=== PATIENT | female | born 1945 | race African-American/Black ===

== ENCOUNTER 2017-08-07 11:17 | Emergency (ER) | payer BC ==
[2017-08-07 11:39] VITALS: BMI 20.7
--- NOTE | 2017-08-07 12:35 | PDOC ---
History of Present Illness - General History Source: Patient - History of Present Illness Pain Location: reports: lower extremity Method of Injury: Yes: fall <TatoNafisa - Last Filed: 08/07/17 13:14> <Supriya Jeffers - Last Filed: 08/07/17 17:13> - General Chief Complaint: Injury Stated Complaint: FELL/PAIN Time Seen by Provider: 08/07/17 12:26 Past History - Past Medical History Cardiac Disorders: Yes (MITRAL VALVE PROLAPSE) COPD: No HTN: Yes Hypercholesterolemia: Yes - Surgical History Cholecystectomy: Yes - Immunization History Td Vaccination: No Immunization Up to Date: Yes - Suicide/Smoking/Psychosocial Hx Smoking Status: No Smoking History: Never smoked Have you smoked in the past 12 months: No Number of Cigarettes Smoked Daily: 0 Cigars Per Day: 0 Information on smoking cessation initiated: No Hx Alcohol Use: No Drug/Substance Use Hx: No Substance Use Type: None Hx Substance Use Treatment: No <Kosta GodwinAvis - Last Filed: 08/07/17 13:14> <Supriya Jeffers - Last Filed: 08/07/17 17:13> - Past Medical History Allergies/Adverse Reactions: Allergies Allergy/AdvReac Type Severity Reaction Status Date / Time amitriptyline HCl Allergy Verified 08/07/17 11:28 [From Elavil] imipramine HCl Allergy Verified 08/07/17 11:28 [From Tofranil] Home Medications: Ambulatory Orders Amlodipine Besylate [Norvasc -] 10 mg PO DAILY 10/17/14 Meloxicam [Mobic -] 15 mg PO DAILY PRN 10/17/14 Leflunomide 20 mg PO DAILY 12/14/15 Atorvastatin Ca [Lipitor] 0 mg PO HS 08/07/17 Review of Systems - Review of Systems Constitutional: No: Fever Respiratory: No: Shortness of Breath Cardiac (ROS): Yes: Lightheadedness. No: Chest Pain, Palpitations, Syncope ABD/GI: No: Nausea, Vomiting : No: Dysuria Musculoskeletal: Yes: Joint Pain, Joint Swelling. No: Back Pain, Neck Pain <Nafisa Godwin - Last Filed: 08/07/17 13:14> *Physical Exam - Vital Signs Last Vital Signs Temp Pulse Resp BP Pulse Ox 98.0 F 92 H 17 128/80 97 01/31/18 11:29 08/07/17 11:29 08/07/17 11:29 08/07/17 11:29 08/07/17 11:29 - Physical Exam General Appearance: Yes: Appropriately Dressed. No: Apparent Distress HEENT: positive: Normal Voice Neck: positive: Supple Respiratory/Chest: positive: Lungs Clear, Normal Breath Sounds. negative: Chest Tender, Respiratory Distress Cardiovascular: positive: Regular Rate, S1, S2 Extremity: positive: Tender, Swelling, Other (no deformity or LLE b/l) Integumentary: positive: Dry, Warm Neurologic: positive: Fully Oriented, Alert, Normal Mood/Affect <Nafisa Godwin - Last Filed: 08/07/17 13:14> - Vital Signs Last Vital Signs Temp Pulse Resp BP Pulse Ox 98.0 F 79 18 107/61 99 08/07/17 11:29 08/07/17 16:14 08/07/17 16:14 08/07/17 16:14 08/07/17 16:14 <Supriya Jeffers - Last Filed: 08/07/17 17:13> Heart Score/ECG Review - ECG Intrepretation Comment:: 08/07/17 12:38 Twelve-lead EKG was performed and reviewed by me. There is normal sinus rhythm with a normal rate. The axis is normal. The intervals are normal. There are no ST or T wave abnormalities. Impression: Normal twelve-lead EKG <Nafisa Godwin - Last Filed: 08/07/17 13:14> ED Treatment Course - LABORATORY CBC & Chemistry Diagram: 08/07/17 12:50 08/07/17 12:50 - RADIOLOGY Radiology Studies Ordered: Category Date Time Status CHEST PA & LAT [RAD] Stat Radiology 08/07/17 12:31 Ordered KNEE 3 POS-RIGHT [RAD] Stat Radiology 08/07/17 12:31 Ordered RIBS BILATERAL [RAD] Stat Radiology 08/07/17 12:32 Ordered <Nafisa Godwin - Last Filed: 08/07/17 13:14> - LABORATORY CBC & Chemistry Diagram: 08/07/17 12:50 08/07/17 12:50 - ADDITIONAL ORDERS Additional order review: Laboratory Results 08/07/17 08/07/17 13:48 12:50 Sodium 143 Potassium 4.0 Chloride 107 Carbon Dioxide 29 Anion Gap 7 L BUN 14 Creatinine 0.7 Creat Clearance w eGFR > 60 Random Glucose 82 Calcium 9.0 Total Bilirubin 1.1 H D AST 24 ALT 28 Alkaline Phosphatase 114 Creatine Kinase 99 Troponin I < 0.02 Total Protein 6.7 Albumin 3.6 Urine Color Yellow Urine Appearance Clear Urine pH 5.0 D Ur Specific [place] 1.021 Urine Protein Negative Urine Glucose (UA) Negative Urine Ketones Negative Urine Blood Negative Urine Nitrite Negative Urine Bilirubin Negative Urine Urobilinogen 2.0 H Ur Leukocyte Esterase Negative 08/07/17 12:50 RBC 4.44 MCV 82.1 MCHC 31.4 L RDW 14.5 MPV 10.2 Neutrophils % 44.8 Lymphocytes % 33.2 Monocytes % 16.4 H Eosinophils % 5.1 H Basophils % 0.5 - RADIOLOGY Radiology Studies Ordered: Category Date Time Status HIP & PELVIS-LEFT [RAD] Stat Radiology 08/07/17 15:10 Completed HIP & PELVIS-RIGHT [RAD] Stat Radiology 08/07/17 15:10 Completed - Medications Given in the ED: ED Medications Discontinued Medications Generic Name Dose Route Start Last Admin Trade Name Freq PRN Reason Stop Dose Admin Ketorolac Tromethamine 30 mg 08/07/17 12:38 08/07/17 12:50 Toradol Injection - IVPUSH 08/07/17 12:39 30 mg ONCE ONE Administration <Supriya Jeffers - Last Filed: 08/07/17 17:13> Medical Decision Making - Medical Decision Making 08/07/17 12:32 71-year-old female, history of arthritis, borderline diabetes, not on medication , hypertension, mitral valve prolapse, not on any blood thinners, here with right knee pain after injury. Patient states 3 days ago while outdoors, she fell and injured left right knee and left chest. Unsure why she fell per pt. Has had intermittent lightheadedness on and off 2 weeks, but states she was not dizzy prior to fall and did not have chest pain. Patient denies hitting head and no LOC, headache, nausea, vomiting, or focal weakness. Admits that she has had similar dizziness intermittently for years with no clear diagnosis. Patient denies any neck, back or hip pain and has been able to bear weight since fall See exam Knee pain s/p fall, unclear mechanism but denies dizziness/cp prior to fall -xr knee and ribs Chronic intermittent dizziness Not dizzy currently No CP/SOB No focal neuro deficits -ekg/cxr/labs 08/07/17 13:14 As per computer aided design technician, patient refusing hip films as she reports she has no hip pain <Nafisa Godwin - Last Filed: 08/07/17 13:14> *DC/Admit/Observation/Transfer <Nafisa Godwin - Last Filed: 08/07/17 13:14> - Discharge Dispostion Admit: No <Supriya Jeffers - Last Filed: 08/07/17 17:13> Diagnosis at time of Disposition: Fall - Discharge Dispostion Disposition: HOME Condition at time of disposition: Good - Referrals Referrals: Stephy Real MD [Primary Care Provider] - - Patient Instructions Additional Instructions: Please return to the ED for any new/worsening/concerning symptoms. - Post Discharge Activity
[2017-08-07] MEDS ORDERED: KETOROLAC TROMETHAMINE 30 MG/1 ML VIAL IVPUSH ONE (12:38)
[2017-08-07] MEDS ORDERED: KETOROLAC TROMETHAMINE 30 MG/1 ML VIAL ONE (12:42)
--- NOTE | 2017-08-07 12:48 | PDOC ---
*Physical Exam - Vital Signs Last Vital Signs Temp Pulse Resp BP Pulse Ox 98.0 F 92 H 17 128/80 97 08/07/17 11:29 08/07/17 11:29 08/07/17 11:29 08/07/17 11:29 08/07/17 11:29 - Physical Exam Comments: 08/07/17 12:47 The patient was examined by ISADORA Godwin under my direct supervision. I personally evaluated the patient. I concur with the above findings and the plan of care. *DC/Admit/Observation/Transfer - Referrals Referrals: Stephy Real MD [Primary Care Provider] - - Patient Instructions - Post Discharge Activity
[2017-08-07 13:00] LABS: BASO % 0.5 % (0-2.0); EOS % 5.1 % (0-4.5); HEMATOCRIT 36.5 % (32.4-45.2); HEMOGLOBIN 11.5 GM/dL (10.7-15.3); LYMPH % 33.2 % (8-40); MCH 25.8 pg (25.7-33.7); MCHC 31.4 g/dl (32.0-36.0); MEAN CELL VOLUME 82.1 fl (80-96); MEAN PLT VOLUME 10.2 fl (7.5-11.1); MONO % 16.4 % (3.8-10.2); NEUT % 44.8 % (42.8-82.8); PLATELET COUNT 145 K/MM3 (134-434); RBC 4.44 M/mm3 (3.60-5.2); RDW 14.5 % (11.6-15.6); WHITE BLOOD COUNT 3.7 K/mm3 (4.0-10.0)
[2017-08-07 13:27] LABS: ALBUMIN 3.6 g/dl (3.4-5.0); ANION GAP 7 (8-16); BLOOD UREA NITROGEN 14 mg/dL (7-18); CHLORIDE 107 mmol/L (98-107); CO2 29 mmol/L (21-32); CREATININE 0.7 mg/dL (0.55-1.02); GLUCOSE,RANDOM 82 mg/dL (74-106); SGOT/AST 24 U/L (15-37); SGPT/ALT 28 U/L (12-78); SODIUM 143 mmol/L (136-145); TOT PROT 6.7 g/dl (6.4-8.2)
[2017-08-07 13:30] LABS: ALK PHOS 114 U/L (45-117); BILIRUBIN,TOTAL 1.1 mg/dL (0.2-1.0)
[2017-08-07 14:00] LABS: URINE APPEARANCE CLEAR; URINE BILIRUBIN NEGATIVE (NEGATIVE); URINE BLOOD NEGATIVE (NEGATIVE); URINE COLOR YELLOW; URINE GLUCOSE (UA) NEGATIVE (NEGATIVE); URINE KETONE NEGATIVE (NEGATIVE); URINE LEUK ESTERASE NEGATIVE (NEGATIVE); URINE NITRITE NEGATIVE (NEGATIVE); URINE PROTEIN NEGATIVE (NEGATIVE)
--- NOTE | 2017-08-07 14:49 | EKG ---
Test Reason : Blood Pressure : / mmHG Vent. Rate : 069 BPM Atrial Rate : 069 BPM P-R Int : 132 ms QRS Dur : 080 ms QT Int : 408 ms P-R-T Axes : 014 051 056 degrees QTc Int : 437 ms POOR DATA QUALITY, INTERPRETATION MAY BE ADVERSELY AFFECTED NORMAL SINUS RHYTHM MINIMAL VOLTAGE CRITERIA FOR LVH, MAY BE NORMAL VARIANT ANTERIOR INFARCT , AGE UNDETERMINED ABNORMAL ECG WHEN COMPARED WITH ECG OF 21-MAY-2016 15:07, ANTERIOR INFARCT IS NOW PRESENT Confirmed by LASHELL LARA, VERONICA ([id number]) on 08/07/2017 2:49:24 PM Referred By: Confirmed By:VERONICA LOBO MD
[2017-08-07 17:11] VITALS: BP 118/71; PULSE 71; TEMP 98.1
--- NOTE | 2017-08-08 11:02 | EKG ---
Test Reason : Blood Pressure : / mmHG Vent. Rate : 075 BPM Atrial Rate : 075 BPM P-R Int : 152 ms QRS Dur : 078 ms QT Int : 392 ms P-R-T Axes : 051 059 057 degrees QTc Int : 437 ms NORMAL SINUS RHYTHM POSSIBLE ANTERIOR INFARCT (CITED ON OR BEFORE 07-AUG-2017) ABNORMAL ECG WHEN COMPARED WITH ECG OF 07-AUG-2017 12:14, T WAVE INVERSION NO LONGER EVIDENT IN ANTERIOR LEADS NONSPECIFIC T WAVE ABNORMALITY NOW EVIDENT IN LATERAL LEADS Confirmed by RAIMUNDO SRINIVASAN MD ([id number]) on 08/08/2017 11:01:56 AM Referred By: Confirmed By:RAIMUNDO SRINIVASAN MD
== END 2017-08-07 17:14 | disposition home or self-care (01) ==
LOC: JER 11:17
PROC: 3E0333Z Introduction of Anti-inflammatory into Peripheral Vein, Percutaneous Approach (ICD-10-PCS; principal; 2017-08-07)
DX: M25.561 Pain in right knee (principal); W18.39XA Other fall on same level, initial encounter; Y93.89 Activity, other specified; Y92.9 Unspecified place or not applicable; I10 Essential (primary) hypertension; I34.1 Nonrheumatic mitral (valve) prolapse; R73.03 Prediabetes
CPT/HCPCS: 36415; 71046-TC; 71111-TC; 73523-TC; 73562-TC-RT; 80053; 81003; 82550; 84484; 85025; 93005; 93010; 96374; 99284-25

== ENCOUNTER 2017-08-28 15:14 | Emergency (ER) | payer BC ==
[2017-08-28 15:48] VITALS: TEMP 98.5; BMI 20.7
[2017-08-28] MEDS ORDERED: SODIUM CHLORIDE 1,000 ML IV STA (18:36)
--- NOTE | 2017-08-28 19:02 | PDOC ---
History of Present Illness - General Chief Complaint: Lightheaded Stated Complaint: DIZZY Time Seen by Provider: 08/28/17 18:21 - History of Present Illness Initial Comments: 08/28/17 19:50 The patient is a 71 year old female, with a significant past medical history of COPD, HTN, mitral valve prolapse, hypercholesterolemia who presents to the emergency department with lightheadedness for 5 days. Pt reports she tried to take a walk today and felt like she was going to pass out which prompted her to come to the ED. Denies LOC or falls. Sister endorses the patient has had less energy these past couple of days with complaints of nausea and a decreased appetite. Sister notes she has been only able to tolerate crackers and Daja Katheryn for most meals and reports the patient did not eat anything today. She denies recent fevers, chills, headache. She denies recent vimiting, diarrhea or constipation. She denies recent dysuria, frequency, urgency or hematuria. She denies recent chest pain or shortness of breath. Denies focal weakness or numbness Allergies: NKA Past surgical history: None reported. Social history: Nonsmoker. Denies EtOH use and recreational drug use. Past History - Past Medical History Allergies/Adverse Reactions: Allergies Allergy/AdvReac Type Severity Reaction Status Date / Time amitriptyline HCl Allergy Verified 08/28/17 15:29 [From Elavil] imipramine HCl Allergy Verified 08/28/17 15:29 [From Tofranil] Home Medications: Ambulatory Orders Amlodipine Besylate [Norvasc -] 10 mg PO DAILY 10/17/14 Meloxicam [Mobic -] 15 mg PO DAILY PRN 10/17/14 Leflunomide 20 mg PO DAILY 12/14/15 Atorvastatin Ca [Lipitor] 0 mg PO HS 08/07/17 Colchicine [Colcrys -] 0.6 mg PO DAILY 08/28/17 Cardiac Disorders: Yes (MITRAL VALVE PROLAPSE) COPD: No HTN: Yes Hypercholesterolemia: Yes - Surgical History Cholecystectomy: Yes - Immunization History Td Vaccination: No Immunization Up to Date: No - Suicide/Smoking/Psychosocial Hx Smoking Status: No Smoking History: Never smoked Have you smoked in the past 12 months: No Number of Cigarettes Smoked Daily: 0 Cigars Per Day: 0 Information on smoking cessation initiated: No Hx Alcohol Use: No Drug/Substance Use Hx: No Substance Use Type: None Hx Substance Use Treatment: No Review of Systems - Review of Systems Comments:: 08/28/17 19:50 GENERAL/CONSTITUTIONAL: No fever or chills. No weakness. HEAD, EYES, EARS, NOSE AND THROAT: No change in vision. No ear pain or discharge. No sore throat. GASTROINTESTINAL: No nausea, vomiting, diarrhea or constipation. GENITOURINARY: No dysuria, frequency, or change in urination. CARDIOVASCULAR: No chest pain or shortness of breath. RESPIRATORY: No cough, wheezing, or hemoptysis. MUSCULOSKELETAL: No joint or muscle swelling or pain. No neck or back pain. SKIN: No rash NEUROLOGIC: +lightheaded. No headache, vertigo, loss of consciousness, or change in strength/sensation. ENDOCRINE: No increased thirst. No abnormal weight change. HEMATOLOGIC/LYMPHATIC: No anemia, easy bleeding, or history of blood clots. ALLERGIC/IMMUNOLOGIC: No hives or skin allergy. *Physical Exam - Vital Signs Last Vital Signs Temp Pulse Resp BP Pulse Ox 98.5 F 71 20 140/90 99 08/28/17 15:29 08/28/17 15:29 08/28/17 15:29 08/28/17 15:29 08/28/17 15:29 - Physical Exam Comments: 08/28/17 19:51 GENERAL: Awake, alert, and fully oriented, in no acute distress HEAD: No signs of trauma EYES: PERRLA, EOMI, sclera anicteric, conjunctiva clear ENT: Auricles normal inspection, hearing grossly normal, nares patent, oropharynx clear without exudates. Dry mucosa NECK: Normal ROM, supple, no lymphadenopathy, JVD, or masses LUNGS: Breath sounds equal, clear to auscultation bilaterally. No wheezes, and no crackles HEART: Regular rate and rhythm, normal S1 and S2, no murmurs, rubs or gallops ABDOMEN: Soft, nontender, normoactive bowel sounds. No guarding, no rebound. No masses EXTREMITIES: Normal range of motion, no edema. No clubbing or cyanosis. No cords , erythema, or tenderness BACK: No midline spinal tenderness in cervical/thoracic/lumbar region NEUROLOGICAL: Normal speech, cranial nerves intact, negative pronator drift, 5/ 5 strength in all 4 extremities, normal sensation to light touch in all 4 extremities, normal cerebellar exam, normal gait, normal reflexes and tone SKIN: Warm, Dry, normal turgor, no rashes or lesions noted. ED Treatment Course - LABORATORY CBC & Chemistry Diagram: 08/28/17 19:25 08/28/17 19:25 - RADIOLOGY Radiology Studies Ordered: Category Date Time Status CHEST X-RAY PORTABLE* [RAD] Stat Radiology 08/28/17 18:36 Taken Medical Decision Making - Medical Decision Making 08/28/17 19:51 71-year-old female hx COPD, HTN, mitral valve prolapse, hypercholesterolemia presents to the emergency department with 5 days of lightheadedness and presyncope today. Vitals unremarkable. Exam with dry mucous membranes, otherwise unremarkable and neurologically intact.. Differential includes but not limited to dehydration due to poor PO intake versus infection versus electrolyte abnormality versus cardiac ischemia. Plan: -EKG -labs -cxr -ivf -UA -reassess Patient has been signed out to overnight attending for further evaluation and management. *DC/Admit/Observation/Transfer Diagnosis at time of Disposition: Lightheadedness, Near syncope - Discharge Dispostion Disposition: HOME Condition at time of disposition: Stable - Referrals Referrals: Alonzo Black MD [Staff Physician] - Jeff Hassan MD [Staff Physician] - - Patient Instructions Printed Discharge Instructions: DI for Syncope in Adults (Fainting) Additional Instructions: Please follow up with your primary care or the doctor referred to you in the next two days for re-evaluation. Return if any problems - Post Discharge Activity
[2017-08-28 19:35] LABS: BASO % 1.1 % (0-2.0); EOS % 6.6 % (0-4.5); HEMATOCRIT 35.1 % (32.4-45.2); HEMOGLOBIN 10.9 GM/dL (10.7-15.3); MCH 25.7 pg (25.7-33.7); MCHC 31.1 g/dl (32.0-36.0); MEAN CELL VOLUME 82.7 fl (80-96); MONO % 4.9 % (3.8-10.2); NEUT % 39.4 % (42.8-82.8); PLATELET COUNT 185 K/MM3 (134-434); RBC 4.25 M/mm3 (3.60-5.2); RDW 14.8 % (11.6-15.6); WHITE BLOOD COUNT 2.7 K/mm3 (4.0-10.0)
[2017-08-28 19:51] LABS: URINE APPEARANCE CLEAR; URINE BILIRUBIN NEGATIVE (NEGATIVE); URINE BLOOD NEGATIVE (NEGATIVE); URINE COLOR LTYELLOW; URINE GLUCOSE (UA) NEGATIVE (NEGATIVE); URINE KETONE NEGATIVE (NEGATIVE); URINE LEUK ESTERASE NEGATIVE (NEGATIVE); URINE NITRITE NEGATIVE (NEGATIVE); URINE PROTEIN NEGATIVE (NEGATIVE); URINE UROBILINOGEN 4.0 E.U/dl mg/dL (0.2-1.0)
[2017-08-28 19:55] LABS: ALBUMIN 3.5 g/dl (3.4-5.0); ANION GAP 7 (8-16); BILIRUBIN,TOTAL 1.3 mg/dL (0.2-1.0); BLOOD UREA NITROGEN 11 mg/dL (7-18); CALCIUM 8.5 mg/dL (8.5-10.1); CHLORIDE 109 mmol/L (98-107); CO2 26 mmol/L (21-32); CREATININE 0.7 mg/dL (0.55-1.02); GLUCOSE,RANDOM 114 mg/dL (74-106); POTASSIUM 3.5 mmol/L (3.5-5.1); SGOT/AST 33 U/L (15-37); SGPT/ALT 39 U/L (12-78); SODIUM 142 mmol/L (136-145); TOT PROT 6.3 g/dl (6.4-8.2)
[2017-08-28 19:57] LABS: ALK PHOS 101 U/L (45-117)
--- NOTE | 2017-08-28 21:20 | PDOC ---
*Physical Exam - Vital Signs Last Vital Signs Temp Pulse Resp BP Pulse Ox 98.5 F 71 20 140/90 99 08/28/17 15:29 08/28/17 15:29 08/28/17 15:29 08/28/17 15:29 08/28/17 15:29 ED Treatment Course - LABORATORY CBC & Chemistry Diagram: 08/28/17 19:25 08/28/17 19:25 - ADDITIONAL ORDERS Additional order review: Laboratory Results 08/28/17 08/28/17 08/28/17 19:47 19:25 19:25 Sodium 142 Potassium 3.5 Chloride 109 H Carbon Dioxide 26 Anion Gap 7 L BUN 11 Creatinine 0.7 Creat Clearance w eGFR > 60 Random Glucose 114 H Calcium 8.5 Magnesium 2.0 Total Bilirubin 1.3 H AST 33 ALT 39 Alkaline Phosphatase 101 Troponin I < 0.02 B-Natriuretic Peptide 45.10 Total Protein 6.3 L Albumin 3.5 Urine Color Ltyellow Urine Appearance Clear Urine pH 8.0 D Ur Specific [place] 1.009 Urine Protein Negative Urine Glucose (UA) Negative Urine Ketones Negative Urine Blood Negative Urine Nitrite Negative Urine Bilirubin Negative Urine Urobilinogen 4.0 e.u/dl H Ur Leukocyte Esterase Negative 08/28/17 19:25 RBC 4.25 MCV 82.7 MCHC 31.1 L RDW 14.8 MPV 10.0 Neutrophils % 39.4 L Lymphocytes % 48.0 H D Monocytes % 4.9 Eosinophils % 6.6 H Basophils % 1.1 - Medications Given in the ED: ED Medications Discontinued Medications Generic Name Dose Route Start Last Admin Trade Name Freq PRN Reason Stop Dose Admin Sodium Chloride 1,000 mls @ 1,000 mls/hr 08/28/17 18:36 08/28/17 19:30 Normal Saline - IV 08/28/17 19:35 1,000 mls/hr ASDIR STA Administration *DC/Admit/Observation/Transfer Diagnosis at time of Disposition: Lightheadedness, Near syncope - Discharge Dispostion Disposition: HOME Condition at time of disposition: Stable Admit: No - Referrals Referrals: Alonzo Black MD [Staff Physician] - Jeff Hassan MD [Staff Physician] - - Patient Instructions Printed Discharge Instructions: DI for Syncope in Adults (Fainting) Additional Instructions: Please follow up with your primary care or the doctor referred to you in the next two days for re-evaluation. Return if any problems - Post Discharge Activity
[2017-08-28 21:37] VITALS: BP 124/86; PULSE 68
--- NOTE | 2017-08-29 16:07 | EKG ---
Test Reason : Blood Pressure : / mmHG Vent. Rate : 072 BPM Atrial Rate : 072 BPM P-R Int : 142 ms QRS Dur : 064 ms QT Int : 414 ms P-R-T Axes : 066 057 052 degrees QTc Int : 453 ms POOR DATA QUALITY, INTERPRETATION MAY BE ADVERSELY AFFECTED NORMAL SINUS RHYTHM SEPTAL INFARCT (CITED ON OR BEFORE 07-AUG-2017) ABNORMAL ECG WHEN COMPARED WITH ECG OF 07-AUG-2017 14:44, QUESTIONABLE CHANGE IN INITIAL FORCES OF SEPTAL LEADS Confirmed by RAIMUNDO SRINIVASAN MD ([id number]) on 08/29/2017 4:07:48 PM Referred By: Confirmed By:RAIMUNDO SRINIVASAN MD
== END 2017-08-28 21:37 | disposition home or self-care (01) ==
LOC: JER 15:14
PROC: 3E0337Z Introduction of Electrolytic and Water Balance Substance into Peripheral Vein, Percutaneous Approach (ICD-10-PCS; principal; 2017-08-28)
DX: R55 Syncope and collapse (principal); I10 Essential (primary) hypertension; J44.9 Chronic obstructive pulmonary disease, unspecified; E78.00 Pure hypercholesterolemia, unspecified; I34.1 Nonrheumatic mitral (valve) prolapse
CPT/HCPCS: 36415; 71045-TC-FY; 80053; 81003; 83735; 83880; 84484; 85025; 87086; 93005; 93010; 99282-25

== ENCOUNTER 2017-11-07 08:39 | Emergency (ER) | payer BC ==
[2017-11-07 08:47] VITALS: BP 138/80; PULSE 73; TEMP 97.5; BMI 20.9
--- NOTE | 2017-11-07 09:03 | PDOC ---
History of Present Illness - General Chief Complaint: Injury Stated Complaint: HEADACHE/ HEAD INJURY Time Seen by Provider: 11/07/17 09:02 History Source: Patient Exam Limitations: No Limitations - History of Present Illness Initial Comments: 11/07/17 10:27 Patient 70-year-old female who presents emergency Department after turning and hitting her head and door frame this morning. Patient states she was getting out of the bathroom when she turned suddenly and hit the front of her forehead in the door frame. She states that she has a bruise to the front of her head. Denies LOC, falling, headache. Denies blood thinner use. States that she currently feels slightly lightheaded. Denies recent illness, fevers, chills, hematuria, dysuria, cough, nausea, vomiting and diarrhea. Past History - Travel Traveled outside of the country in the last 30 days: No Close contact w/someone who was outside of country & ill: No - Past Medical History Allergies/Adverse Reactions: Allergies Allergy/AdvReac Type Severity Reaction Status Date / Time amitriptyline HCl Allergy Verified 11/07/17 08:43 [From Elavil] imipramine HCl Allergy Verified 11/07/17 08:43 [From Tofranil] Home Medications: Ambulatory Orders Amlodipine Besylate [Norvasc -] 10 mg PO DAILY 10/17/14 Meloxicam [Mobic -] 15 mg PO DAILY PRN 10/17/14 Leflunomide 20 mg PO DAILY 12/14/15 Atorvastatin Ca [Lipitor] 0 mg PO HS 08/07/17 Colchicine [Colcrys -] 0.6 mg PO DAILY 08/28/17 Cardiac Disorders: Yes (MITRAL VALVE PROLAPSE) COPD: No HTN: Yes Hypercholesterolemia: Yes - Surgical History Abdominal Surgery: Yes (HERNIA) Cholecystectomy: Yes - Immunization History Td Vaccination: No Immunization Up to Date: No - Suicide/Smoking/Psychosocial Hx Smoking Status: No Smoking History: Never smoked Have you smoked in the past 12 months: No Number of Cigarettes Smoked Daily: 0 Cigars Per Day: 0 Information on smoking cessation initiated: No Hx Alcohol Use: No Drug/Substance Use Hx: No Substance Use Type: None Hx Substance Use Treatment: No Review of Systems - Review of Systems Able to Perform ROS?: Yes Comments:: 11/07/17 09:02 CONSTITUTIONAL: Absent: fever, chills, diaphoresis, generalized weakness, malaise, loss of appetite HEENT: Absent: rhinorrhea, nasal congestion, throat pain, throat swelling, difficulty swallowing, mouth swelling, ear pain, eye pain, visual Changes CARDIOVASCULAR: Absent: chest pain, loss of consciousness, palpitations, irregular heart rate, peripheral edema RESPIRATORY: Absent: cough, shortness of breath, dyspnea with exertion, orthopnea, wheezing, stridor, hemoptysis GASTROINTESTINAL: Absent: abdominal pain, abdominal distension, nausea, vomiting, diarrhea, constipation, melena, hematochezia GENITOURINARY: Absent: dysuria, frequency, urgency, hesitancy, hematuria, flank pain, genital pain MUSCULOSKELETAL: Absent: myalgia, arthralgia, joint swelling SKIN: Present: Hematoma to forehead Absent: rash, itching, pallor HEMATOLOGIC/IMMUNOLOGIC: Absent: easy bleeding, easy bruising, lymphadenopathy, frequent infections ENDOCRINE: Absent: unexplained weight gain, unexplained weight loss, heat intolerance, cold intolerance NEUROLOGIC: Absent: headache, focal weakness or paresthesias, dizziness, unsteady gait, seizure, mental status changes, bladder or bowel incontinence Is the patient limited Peruvian proficient: No *Physical Exam - Vital Signs Last Vital Signs Temp Pulse Resp BP Pulse Ox 97.5 F L 73 18 138/80 100 11/07/17 08:44 11/07/17 08:44 11/07/17 08:44 11/07/17 08:44 11/07/17 08:44 - Physical Exam Comments: 11/07/17 09:03 GENERAL: Well developed, well nourished. Awake and alert. No acute distress. HEENT: Normocephalic, atraumatic. PERRLA, EOMI. No conjunctival pallor. Sclera are non- icteric. Moist mucous membranes. Oropharynx is clear. NECK: Supple. Full ROM. No JVD. Carotid pulses 2+ and symmetric, without bruits. No thyromegaly. No lymphadenopathy. CARDIOVASCULAR: Regular rate and rhythm. No murmurs, rubs, or gallops. Distal pulses are 2+ and symmetric. PULMONARY: No evidence of respiratory distress. Lungs clear to auscultation bilaterally. No wheezing, rales or rhonchi. ABDOMINAL: Soft. Non-tender. Non-distended. No rebound or guarding. No organomegaly. Normoactive bowel sounds. MUSCULOSKELETAL Normal range of motion at all joints. No bony deformities or tenderness. No CVA tenderness. EXTREMITIES: No cyanosis. No clubbing. No edema. No calf tenderness. SKIN: Hematoma to the L forehead approximatel 3cm round. Warm and dry. Normal capillary refill. No rashes. No jaundice. NEUROLOGICAL: Alert, awake, appropriate. Cranial nerves 2-12 intact. No deficits to light touch and temperature in face, upper extremities and lower extremities. No motor deficits in the in face, upper extremities and lower extremities. Normoreflexic in the upper and lower extremities. Normal speech. Toes are down- going bilaterally. Gait is normal without ataxia. PSYCHIATRIC: Cooperative. Good eye contact. Appropriate mood and affect. Medical Decision Making - Medical Decision Making 11/07/17 09:29 Patient is a 71-year-old female fingers department after hitting her head on a door frame today. Patient is neurologically intact this time. Hematoma to the forehead with no lacerations, crepitus or step-offs felt. Negative [place] sign, no hemotympanum. Patient denies blood agrees. Patient given ice pack and Tylenol with relief of her symptoms. Given no LOC and no blood thinner use will defer head CT at this time. Strict return precautions given. Patient understands all discharge instructions and all questions were answered. *DC/Admit/Observation/Transfer Diagnosis at time of Disposition: Hematoma - Discharge Dispostion Disposition: HOME Condition at time of disposition: Stable Admit: No - Referrals Referrals: Bina Tapia MD [Primary Care Provider] - - Patient Instructions Printed Discharge Instructions: How to Prevent Falls Additional Instructions: You hit your head this morning and a doorframe. You have a bruise over your forehead or hematoma. Please apply ice to the area for 20 minute intervals for the next day. Please rest and drink plenty of fluids. Follow-up with her primary care doctor this week. Return to the emergency department if you have worsening headache, lightheadedness, dizziness, vomiting, or have any changes in your symptoms. - Post Discharge Activity Forms/Work/School Notes: Back to Work
== END 2017-11-07 09:58 | disposition home or self-care (01) ==
LOC: JERFT 08:39
DX: S00.83XA Contusion of other part of head, initial encounter (principal); W22.01XA Walked into wall, initial encounter; Y93.89 Activity, other specified; Y92.9 Unspecified place or not applicable; I10 Essential (primary) hypertension; E78.00 Pure hypercholesterolemia, unspecified; I34.1 Nonrheumatic mitral (valve) prolapse
CPT/HCPCS: 99281-25

== ENCOUNTER 2018-02-14 11:57 | Emergency (ER) | payer BC ==
[2018-02-14 12:37] VITALS: TEMP 97.8; BMI 23.5
--- NOTE | 2018-02-14 13:20 | PDOC ---
History of Present Illness - General Chief Complaint: Vomiting/Diarrhea Stated Complaint: ABD PAIN Time Seen by Provider: 02/14/18 13:18 History Source: Patient Exam Limitations: No Limitations - History of Present Illness Initial Comments: Pt, with PMH of COPD, HTN, MVP, HLD, and RA, presents with multiple episodes of nausea, NBNB vomiting, non-bloody loose brown stool, and crampy abdominal pain since 10 am this morning. The pt states she takes colchicine for her RA ( prescribed by Dr. Cardoso) and she took the pills the night before presentation; she takes 4-5 pills one day per week. She has had similar symptoms after taking colchicine in the past. She also ate grilled chicken and coleslaw the night before, which nobody else ate. She has not been able to tolerate PO food or fluid intake since the vomiting and diarrhea started this morning and has started to feel light-headed. The vomiting and diarrhea is preceded by crampy abdominal pain which is intermittent and lasts for a few minutes before the she can use the bathroom. She denies fevers or chills, syncope, vertigo, chest pain , rectal bleeding, leg swelling, or joint pain. She denies any recent travel or other sick contacts. She denies any undercooked food. 02/16/18 18:36 Past History - Travel Traveled outside of the country in the last 30 days: No Close contact w/someone who was outside of country & ill: No - Past Medical History Allergies/Adverse Reactions: Allergies Allergy/AdvReac Type Severity Reaction Status Date / Time amitriptyline HCl Allergy Verified 11/07/17 08:43 [From Elavil] imipramine HCl Allergy Verified 11/07/17 08:43 [From Tofranil] Home Medications: Ambulatory Orders Amlodipine Besylate [Norvasc -] 10 mg PO DAILY 10/17/14 Meloxicam [Mobic -] 15 mg PO DAILY PRN 10/17/14 Leflunomide 20 mg PO DAILY 12/14/15 Atorvastatin Ca [Lipitor] 0 mg PO HS 08/07/17 Colchicine [Colcrys -] 0.6 mg PO DAILY 08/28/17 Ondansetron HCl [Zofran] 4 mg PO DAILY PRN #20 tablet 02/14/18 Asthma: Yes Cardiac Disorders: Yes (MITRAL VALVE PROLAPSE) CVA: No COPD: Yes DVT: No Diabetes: No HTN: Yes Hypercholesterolemia: Yes - Surgical History Abdominal Surgery: Yes (HERNIA) Cholecystectomy: Yes - Immunization History Td Vaccination: No Immunization Up to Date: No - Suicide/Smoking/Psychosocial Hx Smoking Status: No Smoking History: Never smoked Have you smoked in the past 12 months: No Number of Cigarettes Smoked Daily: 0 Cigars Per Day: 0 Hx Alcohol Use: No Drug/Substance Use Hx: No Substance Use Type: None Hx Substance Use Treatment: No Review of Systems - Review of Systems Able to Perform ROS?: Yes Is the patient limited Peruvian proficient: No Constitutional: Yes: Weight Stable. No: Chills, Diaphoresis, Fever, Loss of Appetite, Night Sweats, Weakness HEENTM: No: Blurred Vision, Recent change in vision, Nose Congestion, Hearing Loss, Throat Swelling, Difficulty Swallowing Respiratory: No: Cough, Orthopnea, Shortness of Breath, Wheezing, Productive cough Cardiac (ROS): No: Chest Pain, Edema, Irregular Heart Rate, Lightheadedness, Palpitations, Syncope, Chest Tightness ABD/GI: Yes: Diarrhea, Nausea, Poor Appetite, Poor Fluid Intake (unable to tolerate since vomiting started this morning), Vomiting, Abdominal cramping ( generalized crampy pain). No: Abdominal Distended, Abd. Pain w/ defecation, Blood Streaked Bowels, Constipated, Difficulty Swallowing, Rectal Bleeding, Indigestion, Tarry Stools : No: Burning, Dysuria, Discharge, Frequency, Flank Pain, Hematuria, Incontinence, Pain, Urgency Musculoskeletal: No: Back Pain, Joint Pain, Muscle Pain, Muscle Weakness Integumentary: No: Erythema, Rash, Sweating Neurological: No: Headache, Numbness, Paresthesia, Seizure, Tingling, Weakness, Unsteady Gait, Ataxia, Dizziness Psychiatric: No: Sleep Pattern Change, Change in Appetite Endocrine: No: Increased Urine, Change in Weight Hematologic/Lymphatic: No: Anemia, Blood Clots, Easy Bleeding All Other Systems: Reviewed and Negative *Physical Exam - Vital Signs Last Vital Signs Temp Pulse Resp BP Pulse Ox 97.8 F 80 20 115/67 100 02/14/18 12:33 02/14/18 12:33 02/14/18 12:33 02/14/18 12:33 02/14/18 12:33 - Physical Exam General Appearance: Yes: Nourished, Appropriately Dressed, Thin. No: Apparent Distress HEENT: positive: EOMI, SHEA, Normal ENT Inspection, Normal Voice, Symmetrical, TMs Normal, Pharynx Normal, Hearing Grossly Normal. negative: Scleral Icterus ( R), Scleral Icterus (L), Tonsillar Exudate, Tonsillar Erythema, Nasal Congestion , Rhinorrhea, TM Bulging, TM Erythema, Excessive drooling, Thrush Neck: positive: Trachea midline, Normal Thyroid, Supple. negative: Tender, Rigid, Decreased range of motion, Lymphadenopathy (R), Lymphadenopathy (L), Rigidity Respiratory/Chest: positive: Lungs Clear, Normal Breath Sounds. negative: Chest Tender, Respiratory Distress, Accessory Muscle Use, Crackles, Stridor, Wheezing Cardiovascular: positive: Regular Rhythm, Regular Rate, S1, S2. negative: Edema , JVD, Murmur Vascular Pulses: Dorsalis-Pedis (R): 4+, Doralis-Pedis (L): 4+ Gastrointestinal/Abdominal: positive: Normal Bowel Sounds, Tender (epigastric tenderness, no rebound no guarding. abdominal exam produces nausea.), Flat. negative: Soft, Organomegaly, Pulsatile Mass, Guarding, Rebound, Tenderness Rectal Exam: positive: deferred Lymphatic: negative: Adenopathy, Tenderness Musculoskeletal: positive: Normal Inspection. negative: CVA Tenderness Extremity: positive: Normal Capillary Refill, Normal Inspection, Normal Range of Motion, Pelvis Stable. negative: Tender, Delayed Capillary Refill, Pedal Edema Integumentary: positive: Normal Color, Dry, Warm, Other (increased skin turgor in hands). negative: Jaundice, Mottled, Diaphoresis, Petechiae, Rash Neurologic: positive: solution developer II-XII NML intact, Fully Oriented, Alert, Normal Mood/ Affect, Normal Response, Motor Strength 5/5 Heart Score/ECG Review - History History: Slightly suspicious - Electrocardiogram EKG: Normal - Age Age: >/= 65 - ECG Impressions Normal ECG: Yes Non-specific ST Elevation: No Ischemic Changes: No Bradycardia: No Torsades arias Pointes: No WPW: No ED Treatment Course - LABORATORY CBC & Chemistry Diagram: 02/14/18 15:40 02/14/18 16:55 Medical Decision Making - Medical Decision Making Pt seen at bedside, will also be seen by Dr. Rhona. Pt is afebrile and does not look toxic. Has been having nausea, vomiting, and diarrhea since this morning after taking her colchicine last night. Pt has had similar symptoms in prior weeks after taking her colchicine. Pt states she is feeling better and would like to go home. Will start with 4 mg PO Zofran and PO fluids to see if pt can tolerate PO intake. Will reassess. 02/14/18 13:52 (entered later). Pt continued to have nausea, vomiting, and diarrhea in the department. Canceled PO zofran. Provided 4 mg IV zofran with 1 L NS. CBC and CMP showed changes consistent with dehydration and diarrhea/vomiting ( hyperchloremic, mildly hypernatremic). Pt provided crackers and water in the ER which she was able to tolerate. Will discharge to home with strict follow-up precautions. Pt will follow-up with PCP within 1-2 days. Pt agreeable to plan and will return if symptoms worsen. 02/14/18 18:41 Sent 4 mg PO zofran PRN to preferred pharmacy for nausea/vomiting as needed. 02/14/18 18:50 *DC/Admit/Observation/Transfer Diagnosis at time of Disposition: Gastroenteritis - Discharge Dispostion Disposition: HOME Condition at time of disposition: Improved Decision to Admit order: No - Prescriptions Prescriptions: Ondansetron HCl [Zofran] 4 mg PO DAILY PRN #20 tablet PRN Reason: Nausea And/Or Vomiting - Referrals Referrals: German Esteves MD [Primary Care Provider] - - Patient Instructions - Post Discharge Activity
--- NOTE | 2018-02-14 14:02 | PDOC ---
Attending Attestation - Resident Resident Name: Keyana Stone - ED Attending Attestation I have performed the following: I have examined & evaluated the patient, The case was reviewed & discussed with the resident, I agree w/resident's findings & plan, Exceptions are as noted - HPI HPI: 02/14/18 14:00 72y F hx of RA, htn, hl, gout on colchicine presents with n/v/d since this morning. Pt states she was well yesterday. Pt endorses some cramping abd pain prior to vomiting. She has had 3-4 episodes, nbnb, vomiting, and 2 or so episodes of watery stool without blood. Pt denies any fever/chills, back pain, cp, sob, sick contacts, recent travel or abx use. GENERAL: The patient is awake, alert, and fully oriented, Nontoxic - in no acute distress. HEAD: Normocephalic, atraumatic. EYES: extraocular movements intact, sclera anicteric, conjunctiva clear. ENT: Normal voice, dry mucous membranes. NECK: Normal range of motion, supple LUNGS: Breath sounds equal, clear to auscultation bilaterally. No wheezes, no rhonchi, no rales. HEART: Regular rate and rhythm, normal S1 and S2 without murmur, rub or gallop. ABDOMEN: Soft, nontender, hyperactive bowel sounds. No guarding, no rebound. No CVA tenderness EXTREMITIES: Normal range of motion, no edema. NEUROLOGICAL: No facial assymetry, Normal speech, PSYCH: Normal mood, normal affect. SKIN: Warm, Dry, normal turgor suspect AGE, no abd tenderness to suggest localized peritoneal process will ck labs to r/o metabolic dernagement zofran fro nausea/vomiting fliuds for hydration - Physicial Exam PE: 02/16/18 16:29 see abve - Medical Decision Making 02/16/18 16:29 katlyn flores Heart Score/ECG Review - ECG Impressions Comment:: 02/14/18 17:18 Twelve-lead EKG was performed and reviewed by me. There is normal sinus rhythm with a Rate of [address] wave suggestive of acute infectious ischemia
[2018-02-14] MEDS ORDERED: ONDANSETRON 4 MG TABLET PO ONE (14:05)
[2018-02-14] MEDS ORDERED: ONDANSETRON 4 MG/2 ML VIAL IVPUSH ONE (14:33)
[2018-02-14] MEDS ORDERED: SODIUM CHLORIDE 1,000 ML IV STA (14:33)
[2018-02-14] MEDS ORDERED: ONDANSETRON 4 MG/2 ML VIAL ONE (15:09)
[2018-02-14 16:08] LABS: BASO % 0.6 % (0-2.0); EOS % 4.5 % (0-4.5); HEMATOCRIT 38.9 % (32.4-45.2); HEMOGLOBIN 12.6 GM/dL (10.7-15.3); LYMPH % 33.4 % (8-40); MCH 27.3 pg (25.7-33.7); MCHC 32.4 g/dl (32.0-36.0); MEAN CELL VOLUME 84.3 fl (80-96); MONO % 10.4 % (3.8-10.2); NEUT % 51.1 % (42.8-82.8); RBC 4.61 M/mm3 (3.60-5.2); RDW 14.8 % (11.6-15.6); WHITE BLOOD COUNT 4.1 K/mm3 (4.0-10.0)
[2018-02-14 17:54] LABS: ALBUMIN 3.5 g/dl (3.4-5.0); ALK PHOS 138 U/L (45-117); ANION GAP 8 (8-16); BILIRUBIN,TOTAL 0.9 mg/dL (0.2-1.0); BLOOD UREA NITROGEN 12 mg/dL (7-18); CALCIUM 8.9 mg/dL (8.5-10.1); CHLORIDE 113 mmol/L (98-107); CO2 26 mmol/L (21-32); CREATININE 0.7 mg/dL (0.55-1.02); GLUCOSE,RANDOM 84 mg/dL (74-106); POTASSIUM 4.2 mmol/L (3.5-5.1); SGOT/AST 28 U/L (15-37); SGPT/ALT 25 U/L (12-78); SODIUM 147 mmol/L (136-145); TOT PROT 6.4 g/dl (6.4-8.2)
[2018-02-14 18:09] LABS: LIPASE 260 U/L (73-393)
[2018-02-14 18:47] LABS: PLATELET ESTIMATE ADEQUATE
[2018-02-14] MEDS ORDERED: FOLIC ACID INJECTION - 1 MG, THIAMINE HCL 100 MG, MULTIVIT INJECTION ADULT 10 ML in SOD... IVPB ONE (19:24)
[2018-02-14 19:34] VITALS: BP 128/83; PULSE 94
--- NOTE | 2018-02-15 09:03 | EKG ---
Test Reason : Blood Pressure : / mmHG Vent. Rate : 065 BPM Atrial Rate : 065 BPM P-R Int : 138 ms QRS Dur : 074 ms QT Int : 416 ms P-R-T Axes : 004 055 043 degrees QTc Int : 432 ms NORMAL SINUS RHYTHM NORMAL ECG WHEN COMPARED WITH ECG OF 28-AUG-2017 20:49, CRITERIA FOR SEPTAL INFARCT ARE NO LONGER PRESENT NONSPECIFIC T WAVE ABNORMALITY NO LONGER EVIDENT IN ANTERIOR LEADS Confirmed by ZARINA LARA, RAIMUNDO ([id number]) on 02/15/2018 9:03:32 AM Referred By: Confirmed By:RAIMUNDO SRINIVASAN MD
--- NOTE | 2018-02-16 08:54 | EKG ---
Test Reason : Blood Pressure : / mmHG Vent. Rate : 059 BPM Atrial Rate : 059 BPM P-R Int : 152 ms QRS Dur : 078 ms QT Int : 442 ms P-R-T Axes : 024 064 054 degrees QTc Int : 437 ms SINUS BRADYCARDIA OTHERWISE NORMAL ECG WHEN COMPARED WITH ECG OF 14-FEB-2018 14:24, NO SIGNIFICANT CHANGE WAS FOUND Confirmed by RAIMUNDO SRINIVASAN MD ([id number]) on 02/16/2018 8:54:29 AM Referred By: Confirmed By:RAIMUNDO SRINIVASAN MD
== END 2018-02-14 19:25 | disposition home or self-care (01) ==
LOC: JER 11:57 → JERFT 11:57 → JER 19:25
PROC: 3E033GC Introduction of Other Therapeutic Substance into Peripheral Vein, Percutaneous Approach (ICD-10-PCS; principal; 2018-02-14)
PROC: 3E0337Z Introduction of Electrolytic and Water Balance Substance into Peripheral Vein, Percutaneous Approach (ICD-10-PCS; 2018-02-14)
DX: K52.9 Noninfective gastroenteritis and colitis, unspecified (principal); I10 Essential (primary) hypertension; J44.9 Chronic obstructive pulmonary disease, unspecified; E78.00 Pure hypercholesterolemia, unspecified
CPT/HCPCS: 36415; 80053; 83690; 85025; 93005; 93010; 99283-25; J7030

== ENCOUNTER 2019-03-07 14:21 | Emergency (ER) | payer BC ==
[2019-03-07 14:34] VITALS: TEMP 98.5; BMI 21.6
--- NOTE | 2019-03-07 15:06 | PDOC ---
History of Present Illness - General Chief Complaint: Chest Pain Stated Complaint: CHEST PAIN Time Seen by Provider: 03/07/19 15:04 History Source: Patient Exam Limitations: Clinical Condition - History of Present Illness Initial Comments: Zofia Kumar is a 73 yo F w a pmh of COPD, HTN, mitral valve prolapse , and HCL who presents to the [facility] ER via private auto with intermittent chest pain for 1 month. The patient was recently seen by her PCP Dr. German Esteves on but didn't feel like he addressed her symptoms enough so came to the ER to be evaluated. She states a few times a month the lower right part of her ribs experience a sharp pain sensation rated 6/10 without radiation. When the pain comes on it lasts for around 10 seconds then goes away. The pain is not brought on by physical activity. The patient states she has vomited a few times in the past month but the vomiting has no correlation with her right lower pain. The pain is not associated with nausea, vomiting, or diaphoresis. Denies SOB, personal or family hx of blood clots, recent surgeries, cancer, recent travel, or back pain. PCP: German Esteves Accountant Auditor: None Allergies: TCA's Past surgical history: cholecystectomy, Abdominal hernia surgery Social history: Denies current smoking, alcohol, or illicit drug usage. Past History - Past Medical History Allergies/Adverse Reactions: Allergies Allergy/AdvReac Type Severity Reaction Status Date / Time amitriptyline HCl Allergy Verified 03/07/19 14:34 [From Elavil] imipramine HCl Allergy Verified 03/07/19 14:34 [From Tofranil] Home Medications: Ambulatory Orders Amlodipine Besylate [Norvasc -] 10 mg PO DAILY 10/17/14 Meloxicam [Mobic -] 15 mg PO DAILY PRN 10/17/14 Leflunomide 20 mg PO DAILY 12/14/15 Atorvastatin Ca [Lipitor] 0 mg PO HS 08/07/17 Colchicine [Colcrys -] 0.6 mg PO DAILY 08/28/17 Ondansetron HCl [Zofran] 4 mg PO DAILY PRN #20 tablet 02/14/18 Asthma: Yes Cardiac Disorders: Yes (MITRAL VALVE PROLAPSE) CVA: No COPD: Yes DVT: No Diabetes: Yes HTN: Yes Hypercholesterolemia: Yes Other medical history: arthritis - Surgical History Abdominal Surgery: Yes (HERNIA) Cholecystectomy: Yes - Immunization History Td Vaccination: No Immunization Up to Date: No - Suicide/Smoking/Psychosocial Hx Smoking Status: No Smoking History: Never smoked Have you smoked in the past 12 months: No Number of Cigarettes Smoked Daily: 0 Cigars Per Day: 0 Hx Alcohol Use: No Drug/Substance Use Hx: No Substance Use Type: None Hx Substance Use Treatment: No Review of Systems - Review of Systems Able to Perform ROS?: Yes Comments:: CONSTITUTIONAL: Absent: fever, no chills, no fatigue EYES: Absent: visual changes ENT: Absent: ear pain, no sore throat CARDIOVASCULAR: Present: Chest pain Absent: no palpitations RESPIRATORY: Absent: cough, no SOB GI: Absent: abdominal pain, no nausea, no vomiting, no constipation, no diarrhea GENITOURINARY: Absent: dysuria, no frequency, no hematuria MUSKULOSKELETAL: Absent: back pain, no arthralgia, no myalgia SKIN: Absent: rash NEURO: Absent: headache *Physical Exam - Vital Signs Last Vital Signs Temp Pulse Resp BP Pulse Ox 98.5 F 89 18 118/71 98 03/07/19 14:31 03/07/19 14:31 03/07/19 14:31 03/07/19 14:31 03/07/19 14:31 - Physical Exam Comments: GENERAL: Elderly lady, sad appearing. Well-nourished. No apparent distress. HEENT: Normocephalic, atraumatic. PERRL, EOM intact. CARDIOVASCULAR: Normal S1, S2. Regular rate and rhythm. PULMONARY: No evidence of respiratory distress. Lungs clear to auscultation bilaterally. No wheezing, rales or rhonchi. ABDOMEN: Soft, non-distended, non-tender. EXTREMITIES: Normal ROM in all four extremities. No gross deformities. SKIN: Warm, dry. No rash NEUROLOGICAL: No focal neurological deficits. ED Treatment Course - LABORATORY CBC & Chemistry Diagram: 03/07/19 16:12 03/07/19 16:12 Medical Decision Making - Medical Decision Making Zofia Kumar is a 73 yo F w a pmh of COPD, HTN, mitral valve prolapse , and HCL who presents to the [facility] ER via private auto with intermittent chest pain for 1 month. The patient was recently seen by her PCP Dr. German Esteves on but didn't feel like he addressed her symptoms enough so came to the ER to be evaluated. She states a few times a month the lower right part of her ribs experience a sharp pain sensation rated 6/10 without radiation. When the pain comes on it lasts for around 10 seconds then goes away. The pain is not brought on by physical activity. The patient states she has vomited a few times in the past month but the vomiting has no correlation with her right lower pain. The pain is not associated with nausea, vomiting, or diaphoresis. Vital Signs Temp Pulse Resp BP Pulse Ox 98.5 F 89 18 118/71 98 03/07/19 14:31 03/07/19 14:31 03/07/19 14:31 03/07/19 14:31 03/07/19 14:31 DDx IBNLT: ACS/NE, pneumothorax, arrhythmia, PNA, costochondritis, shingles, electrolyte/metabolic disturbance, COPD exacerbation, anxiety/depression Plan: Labs, EKG, CXR, analgesia + supportive care, re-assess. EKG: Normal sinus and regular EKG. There is an inverted T wave in aVL that was not present 1 year prior. - Will get 2 trops Labs: cbc normal. Elevated BUN - will hydrate. Elevated total Bili. Trop x1 negative. CXR: Unremarkable. Re-assessment: Patient feels well and has no more complaints. She requests to be discharged. Disposition: Home if 2nd trop negative and 2nd EKG the same. *DC/Admit/Observation/Transfer Diagnosis at time of Disposition: Atypical chest pain - Discharge Dispostion Disposition: HOME Condition at time of disposition: Improved Decision to Admit order: No - Referrals Referrals: German Esteves MD [Primary Care Provider] - Luis E Alfredo MD [Staff Physician] - - Patient Instructions Printed Discharge Instructions: DI for Atypical Chest Pain Additional Instructions: You came into the ER with chest pain. We looked at your blood and did an EKG and found that you did not have a heart attack. Please make sure to follow up with your primary care doctor in the next 3 to 5 days. Please also schedule a an appointment with the hazard mitigation officer we are referring you to - Dr. Alfredo. Come back to the ER immediately if your pain worsens or you have any other new or worsening concerns. Thank you for coming to the [facility] ER. We hope you feel better soon! Print Language: PASHTO - Post Discharge Activity
[2019-03-07] MEDS ORDERED: SODIUM CHLORIDE 500 ML IV STA (15:55)
[2019-03-07] MEDS ORDERED: ACETAMINOPHEN 325 MG TABLET (FP) PO ONE (15:56)
[2019-03-07] MEDS ORDERED: LIDOCAINE 5% TOPICAL PATCH TP ONE (16:05)
[2019-03-07] MEDS ORDERED: ALBUTEROL SO4 2.5/IPRATROPIUM 0.5 INH SOL 3 ML VIAL.NEB. NEB ONE ×2 (16:09→16:20)
[2019-03-07] MEDS ORDERED: ACETAMINOPHEN 325 MG TABLET (FP) ONE (16:21)
[2019-03-07] MEDS ORDERED: LIDOCAINE 5% TOPICAL PATCH ONE (16:21)
--- NOTE | 2019-03-07 16:22 | PDOC ---
Documentation entered by Rosalva Young SCRIBE, acting as scribe for Christine Bishop DO. Christine Bishop, DO: This documentation has been prepared by the Hannah barfield Adrianna, SCRIBE, under my direction and personally reviewed by me in its entirety. I confirm that the documentation accurately reflects all work, treatment, procedures, and medical decision making performed by me. Attending Attestation - Resident Resident Name: Hira Davis - ED Attending Attestation I have performed the following: I have examined & evaluated the patient, The case was reviewed & discussed with the resident, I agree w/resident's findings & plan, Exceptions are as noted - HPI HPI: The patient is a 73 year old female, with a significant PMH of COPD, HTN, MVP, HLD, asthma, and RA, who presents to the ED for evaluation of chest pain for one month. Patient reports intermittent, sharp right-sided chest pain, that is a 6/10 in nature and localized. She was evaluated by her PCP for this complaint , but felt more needed to be done so she came to the ER for evaluation. The patient was recently seen by her PCP Dr. German Esteves on but didn't feel like he addressed her symptoms enough so came to the ER to be evaluated. S Allergies: Amitriptyline, imipramine Surgical History: Abdominal hernia, cholecystectomy Social History: Denies EtOH, tobacco, or illicit drug use PCP: Dr. Esteves - Physicial Exam PE: Constitutional: Awake, alert, oriented. No acute distress. Cardiovascular: Regular rate. Regular rhythm. S1, S2 regular. Distal pulses are 2+ and symmetric. No reproducible anterior chest wall tenderness. Pulmonary/Chest: No evidence of respiratory distress. Clear to auscultation bilaterally No wheezing, rales or rhonchi. Abdominal: Soft and nondistended. There is no tenderness. No rebound, guarding or rigidity. No organomegaly. No palpable masses. Good bowel sounds. Musculoskeletal: No edema. No cyanosis. No clubbing. Full range of motion in all extremities. Nocalf tenderness. Radial/pedal pulses are intact and 2+ bilaterally Neurological: Cranial nerves II-XII are grossly intact. No focal neuro deficits. Psychiatric: +Flat affect (possibly secondary to recent intermediate, lives alone , only company is her cat). Good eye contact. - Medical Decision Making 03/07/19 16:19 I, Dr. Christine Bishop, DO, attest that this document has been prepared under my direction and personally reviewed by me in its entirety. I further attest, that it accurately reflects all work, treatment, procedures and medical decision -making performed by me. 03/07/19 16:19 a/p: 73yo female with intermittent cp that lasts 10 seconds and occurs once a month -seen by pmd who told her it was ok -no pain today but concerned there may be something -last episode was a few days ago -lives at home alone, flat affect, recently retired, poss hx of copd, lives at home with a cat only -poss depressed, denies si/hi -low suspicion for acs -will send labs, cxr, trop, ekg -will monitor and reassess 03/07/19 16:22 pt denies all complaints at this time 03/07/19 16:35 cxr clear Heart Score/ECG Review - ECG Intrepretation Comment:: 03/07/19 16:22 sinus at 80, nl axis, nl interval, new t wave inversions avl, no other acute changes, no st changes
[2019-03-07 16:42] LABS: BASO % 0.7 % (0-2.0); EOS % 3.6 % (0-4.5); HEMATOCRIT 39.2 % (32.4-45.2); HEMOGLOBIN 12.6 GM/dL (10.7-15.3); LYMPH % 23.2 % (8-40); MEAN CELL VOLUME 87.5 fl (80-96); MEAN PLT VOLUME 10.1 fl (7.5-11.1); MONO % 12.2 % (3.8-10.2); NEUT % 60.3 % (42.8-82.8); PLATELET COUNT 269 K/MM3 (134-434); RBC 4.48 M/mm3 (3.60-5.2); RDW 16.2 % (11.6-15.6); WHITE BLOOD COUNT 7.6 K/mm3 (4.0-10.0)
[2019-03-07 17:01] LABS: ALBUMIN 3.7 g/dl (3.4-5.0); ALK PHOS 92 U/L (45-117); ANION GAP 5 MMOL/L (8-16); BILIRUBIN,TOTAL 1.5 mg/dL (0.2-1); BLOOD UREA NITROGEN 18.2 mg/dL (7-18); CALCIUM 9.2 mg/dL (8.5-10.1); CHLORIDE 105 mmol/L (98-107); CO2 29 mmol/L (21-32); CREATININE 0.8 mg/dL (0.55-1.3); GLUCOSE,RANDOM 82 mg/dL (74-106); MAGNESIUM 2.3 mg/dL (1.8-2.4); N-TERMINAL BNP 22.5 pg/ml (5-450); POTASSIUM 4.6 mmol/L (3.5-5.1); SGOT/AST 19 U/L (15-37); SGPT/ALT 12 U/L (13-61); SODIUM 139 mmol/L (136-145); TOT PROT 6.7 g/dl (6.4-8.2)
[2019-03-07 17:02] LABS: INR 1.02 (0.83-1.09)
[2019-03-07] MEDS ORDERED: SODIUM CHLORIDE 0.9% 500 ML INFUS.BAG IV ONE (17:06)
--- NOTE | 2019-03-07 19:06 | PDOC ---
*Physical Exam - Vital Signs Last Vital Signs Temp Pulse Resp BP Pulse Ox 98.5 F 89 18 118/71 98 03/07/19 14:31 03/07/19 14:31 03/07/19 14:31 03/07/19 14:31 03/07/19 14:31 - Physical Exam Comments: 03/07/19 19:05 Received sign out from Dr. Davis <Isiah Garay - Last Filed: 03/07/19 19:05> - Vital Signs Last Vital Signs Temp Pulse Resp BP Pulse Ox 98.5 F 89 18 118/71 98 03/07/19 14:31 03/07/19 14:31 03/07/19 14:31 03/07/19 14:31 03/07/19 14:31 <Essie Carbjaal - Last Filed: 03/07/19 20:36> ED Treatment Course - LABORATORY CBC & Chemistry Diagram: 03/07/19 16:12 03/07/19 16:12 - ADDITIONAL ORDERS Additional order review: Laboratory Results 03/07/19 03/07/19 16:12 16:12 PT with INR 12.00 INR 1.02 Sodium 139 Potassium 4.6 Chloride 105 Carbon Dioxide 29 Anion Gap 5 L BUN 18.2 H Creatinine 0.8 Est GFR (CKD-EPI)AfAm 83.59 Est GFR (CKD-EPI)NonAf 72.12 Random Glucose 82 Calcium 9.2 Magnesium 2.3 Total Bilirubin 1.5 H AST 19 ALT 12 L Alkaline Phosphatase 92 Creatine Kinase 72 Troponin I < 0.02 B-Natriuretic Peptide 22.5 Total Protein 6.7 Albumin 3.7 03/07/19 16:12 RBC 4.48 MCV 87.5 MCHC 32.0 RDW 16.2 H MPV 10.1 Neutrophils % 60.3 Lymphocytes % 23.2 D Monocytes % 12.2 H Eosinophils % 3.6 Basophils % 0.7 - Medications Given in the ED: ED Medications Discontinued Medications Generic Name Dose Route Start Last Admin Trade Name Freq PRN Reason Stop Dose Admin Acetaminophen 975 mg 03/07/19 15:56 03/07/19 16:39 Tylenol - PO 03/07/19 15:57 Not Given ONCE ONE Albuterol/Ipratropium 1 amp 03/07/19 16:09 03/07/19 16:39 Duoneb - NEB 03/07/19 16:10 1 amp ONCE ONE Administration Sodium Chloride 500 mls @ 500 mls/hr 03/07/19 15:55 03/07/19 16:39 Normal Saline - IV 03/07/19 16:54 500 mls/hr ASDIR STA Administration Lidocaine 1 patch 03/07/19 16:05 03/07/19 16:39 Lidoderm Patch - TP 03/07/19 16:06 1 patch ONCE ONE Administration <Isiah Garay - Last Filed: 03/07/19 19:05> - LABORATORY CBC & Chemistry Diagram: 03/07/19 16:12 03/07/19 16:12 - ADDITIONAL ORDERS Additional order review: Laboratory Results 03/07/19 03/07/19 16:12 16:12 PT with INR 12.00 INR 1.02 Sodium 139 Potassium 4.6 Chloride 105 Carbon Dioxide 29 Anion Gap 5 L BUN 18.2 H Creatinine 0.8 Est GFR (CKD-EPI)AfAm 83.59 Est GFR (CKD-EPI)NonAf 72.12 Random Glucose 82 Calcium 9.2 Magnesium 2.3 Total Bilirubin 1.5 H AST 19 ALT 12 L Alkaline Phosphatase 92 Creatine Kinase 72 Troponin I < 0.02 B-Natriuretic Peptide 22.5 Total Protein 6.7 Albumin 3.7 03/07/19 16:12 RBC 4.48 MCV 87.5 MCHC 32.0 RDW 16.2 H MPV 10.1 Neutrophils % 60.3 Lymphocytes % 23.2 D Monocytes % 12.2 H Eosinophils % 3.6 Basophils % 0.7 - Medications Given in the ED: ED Medications Discontinued Medications Generic Name Dose Route Start Last Admin Trade Name Jono PRN Reason Stop Dose Admin Acetaminophen 975 mg 03/07/19 15:56 03/07/19 16:39 Tylenol - PO 03/07/19 15:57 Not Given ONCE ONE Albuterol/Ipratropium 1 amp 03/07/19 16:09 03/07/19 16:39 Duoneb - NEB 03/07/19 16:10 1 amp ONCE ONE Administration Sodium Chloride 500 mls @ 500 mls/hr 03/07/19 15:55 03/07/19 16:39 Normal Saline - IV 03/07/19 16:54 500 mls/hr ASDIR STA Administration Lidocaine 1 patch 03/07/19 16:05 03/07/19 16:39 Lidoderm Patch - TP 03/07/19 16:06 1 patch ONCE ONE Administration <Essie Carbajal - Last Filed: 03/07/19 20:36> Medical Decision Making - Medical Decision Making 03/07/19 19:[address] Bishop pending 2nd trop/EKG ABDOMEN sono with incidental renal cysts, otherwise unremarkable. no stones, unremarkable pancreas EKG normal sinus rhythm at 100 bpm, no interval abnormalities, narrow QRS, ST and T wave segments and morphology normal. unchanged trop neg x2, reassuring ambulatory in department. no cp or sob. well appearing anticipate discharge. repeat VS improved, normotensive, nontoxic appearing. 03/07/19 20:34 <RavenEssie Oreilly - Last Filed: 03/07/19 20:36> *DC/Admit/Observation/Transfer <Isiah Garay - Last Filed: 03/07/19 19:05> <RavenYudyEssieyasmin Oreilly - Last Filed: 03/07/19 20:36> Diagnosis at time of Disposition: Atypical chest pain - Discharge Dispostion Disposition: HOME Condition at time of disposition: Improved - Referrals Referrals: Luis E Alfredo MD [Staff Physician] - German Esteves MD [Primary Care Provider] - - Patient Instructions Printed Discharge Instructions: DI for Atypical Chest Pain Additional Instructions: You came into the ER with chest pain. We looked at your blood and did an EKG and found that you did not have a heart attack. Please make sure to follow up with your primary care doctor in the next 3 to 5 days. Please also schedule a an appointment with the senior client advisor we are referring you to - Dr. Alfredo. Come back to the ER immediately if your pain worsens or you have any other new or worsening concerns. Thank you for coming to the [facility] ER. We hope you feel better soon! Print Language: SAMI - Post Discharge Activity
[2019-03-07 21:32] VITALS: BP 116/75; PULSE 85
[2019-03-07] MEDS ORDERED: LIDOCAINE PATCH REMOVAL MC SCH (22:00)
--- NOTE | 2019-03-08 09:37 | EKG ---
Test Reason : Blood Pressure : / mmHG Vent. Rate : 100 BPM Atrial Rate : 100 BPM P-R Int : 128 ms QRS Dur : 074 ms QT Int : 348 ms P-R-T Axes : 008 052 048 degrees QTc Int : 448 ms NORMAL SINUS RHYTHM POSSIBLE ANTERIOR INFARCT , AGE UNDETERMINED ABNORMAL ECG WHEN COMPARED WITH ECG OF 07-MAR-2019 14:29, NO SIGNIFICANT CHANGE WAS FOUND Confirmed by RAIMUNDO SRINIVASAN MD ([id number]) on 03/08/2019 9:37:11 AM Referred By: Confirmed By:RAIMUNDO SRINIVASAN MD
--- NOTE | 2019-03-08 09:38 | EKG ---
Test Reason : Blood Pressure : / mmHG Vent. Rate : 080 BPM Atrial Rate : 080 BPM P-R Int : 132 ms QRS Dur : 078 ms QT Int : 366 ms P-R-T Axes : 053 059 058 degrees QTc Int : 422 ms NORMAL SINUS RHYTHM MINIMAL VOLTAGE CRITERIA FOR LVH, MAY BE NORMAL VARIANT BORDERLINE ECG WHEN COMPARED WITH ECG OF 14-FEB-2018 17:19, NO SIGNIFICANT CHANGE WAS FOUND Confirmed by ZARINA LARA, RAIMUNDO ([id number]) on 03/08/2019 9:38:12 AM Referred By: Confirmed By:RAIMUNDO SRINIVASAN MD
== END 2019-03-07 21:32 | disposition home or self-care (01) ==
LOC: JER 14:21
PROC: 3E0337Z Introduction of Electrolytic and Water Balance Substance into Peripheral Vein, Percutaneous Approach (ICD-10-PCS; principal; 2019-03-07)
PROC: 3E0F7GC Introduction of Other Therapeutic Substance into Respiratory Tract, Via Natural or Artificial Opening (ICD-10-PCS; 2019-03-07)
DX: R07.89 Other chest pain (principal); I10 Essential (primary) hypertension; J44.9 Chronic obstructive pulmonary disease, unspecified; I34.1 Nonrheumatic mitral (valve) prolapse; J45.909 Unspecified asthma, uncomplicated; M12.9 Arthropathy, unspecified
CPT/HCPCS: 36415; 71045-TC-FY; 76705-TC; 80053; 82550; 83735; 83880; 84484; 85025; 85610; 93005; 93010; 94640; 96360; 99283-25

== ENCOUNTER 2019-05-20 12:22 | Inpatient (IN) | payer BC ==
--- NOTE | 2019-05-20 12:54 | PDOC ---
History of Present Illness - General Stated Complaint: Shortness of Breath Time Seen by Provider: 05/20/19 12:40 History Source: Patient, Family Exam Limitations: No Limitations - History of Present Illness Initial Comments: 05/20/19 12:53 Zofia Kumar is a 73F with PMH COPD (no home O2 or nebs), HTN, MVP, rheumatoid arthritis on chronic prednisone presenting with SOB and productive cough after a colonoscopy today. Patient seen today by Dr. Fofana for routine 10 year colonoscopy, was not intubated, sedated with propofol, but needed oropharyngeal suctioning during procedure. Per Dr. Fofana, patient was coughing after procedure but was otherwise not significantly short of breath, no abnormalities noted on colonoscopy. Patient returned home, then 30 minutes later was coughing with yellow mucous sputum and dyspneic, EMS called to bring patient to [facility]. Patient denies cough or dyspnea prior to today, denies fever or sick contacts. Has been taking laxatives since yesterday and NPO after midnight, was nauseated this morning without vomiting, has not eaten since yesterday. Says she has history of mild COPD, no home O2, on prednisone, no nebs or ICS. Denies chest pain, BUTLER, dizziness, abd pain, urinary symptoms. Denies smoking history, alcohol/drug use. Denies history of any blood clots or clotting disorders. Past History - Past Medical History Allergies/Adverse Reactions: Allergies Allergy/AdvReac Type Severity Reaction Status Date / Time amitriptyline HCl Allergy Verified 03/07/19 14:34 [From Elavil] imipramine HCl Allergy Verified 03/07/19 14:34 [From Tofranil] Home Medications: Ambulatory Orders Amlodipine Besylate [Norvasc -] 10 mg PO DAILY 10/17/14 Atorvastatin Ca [Lipitor] 0 mg PO HS 08/07/17 Bisacodyl [Dulcolax -] 5 mg PO DAILY 05/20/19 Folic Acid 1 mg PO DAILY 05/20/19 Methotrexate Sodium [Methotrexate] 10 mg PO DAILY 05/20/19 Polyethylene Glycol 3350 17 gm PO DAILY 05/20/19 Prednisone 5 mg PO DAILY 05/20/19 Asthma: Yes Cardiac Disorders: Yes (MITRAL VALVE PROLAPSE) CVA: No COPD: Yes DVT: No Diabetes: Yes HTN: Yes Hypercholesterolemia: Yes - Surgical History Abdominal Surgery: Yes (HERNIA) Cholecystectomy: Yes - Immunization History Td Vaccination: No Immunization Up to Date: No - Psycho Social/Smoking Cessation Hx Smoking Status: No Smoking History: Never smoked Have you smoked in the past 12 months: No Number of Cigarettes Smoked Daily: 0 Cigars Per Day: 0 Hx Alcohol Use: No Drug/Substance Use Hx: No Substance Use Type: None Hx Substance Use Treatment: No Review of Systems - Review of Systems Able to Perform ROS?: Yes Constitutional: No: Symptoms Reported HEENTM: No: Symptoms Reported Respiratory: Yes: Cough, Shortness of Breath, Wheezing, Productive cough ( yellow sputum). No: Hemoptysis Cardiac (ROS): No: Chest Pain, Lightheadedness, Palpitations, Syncope ABD/GI: Yes: Nausea, Poor Appetite, Poor Fluid Intake, Vomiting. No: Constipated, Diarrhea : No: Symptoms Reported Musculoskeletal: No: Symptoms Reported Integumentary: No: Symptoms Reported Neurological: No: Symptoms reported Endocrine: No: Symptoms Reported Hematologic/Lymphatic: No: Symptoms Reported All Other Systems: Reviewed and Negative *Physical Exam - Vital Signs Last Vital Signs Temp Pulse Resp BP Pulse Ox 98.5 F 104 H 16 137/87 100 05/20/19 12:35 05/20/19 12:35 05/20/19 12:35 05/20/19 12:35 05/20/19 12:35 - Physical Exam General Appearance: Yes: Nourished, Appropriately Dressed, Moderate Distress HEENT: positive: EOMI, SHEA, Normal ENT Inspection, Normal Voice, Pharynx Normal (uvula non-deviated, non-swollen), Hearing Grossly Normal. negative: Scleral Icterus (R), Scleral Icterus (L) Neck: positive: Trachea midline, Supple. negative: Tender, Rigid, Lymphadenopathy (R), Lymphadenopathy (L) Respiratory/Chest: positive: Respiratory Distress, Labored Respiration, Wheezing. negative: Chest Tender, Accessory Muscle Use, Crackles, Rales, Rhonchi, Stridor Cardiovascular: positive: Regular Rhythm, Regular Rate. negative: Edema Gastrointestinal/Abdominal: positive: Normal Bowel Sounds, Flat, Soft. negative : Tender, Organomegaly, Guarding, Rebound Musculoskeletal: positive: Normal Inspection. negative: CVA Tenderness Extremity: positive: Normal Capillary Refill, Normal Inspection, Normal Range of Motion. negative: Tender, Pedal Edema, Swelling Integumentary: positive: Normal Color, Dry, Warm. negative: Jaundice, Hives, Rash Neurologic: positive: Alert, Normal Mood/Affect, Normal Response ED Treatment Course - LABORATORY CBC & Chemistry Diagram: 05/20/19 13:00 05/20/19 13:00 Medical Decision Making - Medical Decision Making 05/20/19 12:53 Zofia Kumar is a 73F with PMH COPD (no home O2, on prednisone), HTN, MVP, osteoarthritis presenting with SOB and productive cough after a colonoscopy today. Patient presentation concerning for COPD exacerbation vs. PNA given productive cough vs. asthma exacerbation vs. allergic reaction to anesthesia. No evidence of laryngeal trauma, airway edema despite patient describing globus sensation. Difficult to assess lungs/heart sounds 2/2 transmitted upper airway sounds. CBC CMP Troponin CXR ECG BNP Giving 1 amp Duonebs to assess for improvement in dyspnea. Patient coughing too strongly to obtain ECG, will give Zofran to possibly control nausea as cause of cough. 05/20/19 14:13 Breathing improved after 1 amp Duonebs, will give Solu-Medrol for concern COPD exacerbation. Bedside US shows B-line pattern to L lung base consistent with PNA, no cardiac abnormalities. CXR preliminary read notable for interstitial opacities concerning for PNA, will give ceftriaxone and azithromycin for concern for CAP. Labs notable for: - WBC 12.9, possible 2/2 chronic prednisone use vs. true infectious leukocytosis - Cr 0.8 - trop <0.02 05/20/19 14:34 Patient presentation is concerning for PNA with superimposed COPD given dyspnea , elevated WBC, and CXR/US findings in the setting of recent procedure, requires admission for further treatment of her COPD with high-risk active acute comorbidity. 05/20/19 15:11 ECG shows sinus tachycardia with HR 103, QTc 452, significant baseline artifact but no clear evidence of ischemic changes or TWI. Will get repeat. 05/20/19 15:20 Dr. Fofana notified that patient is being admitted to hospitalist service. Signed out to Dr. Uribe with admitting team, good to be admitted to Med-Surg under Dr. Lomax. Discharge - Discharge Information Problems reviewed: Yes Clinical Impression/Diagnosis: Cough, COPD exacerbation Dyspnea Qualifiers: Dyspnea type: shortness of breath Qualified Code(s): R06.02 - Shortness of breath PNA (pneumonia) Qualifiers: Pneumonia type: due to unspecified organism Laterality: left Lung location: lower lobe of lung Qualified Code(s): J18.9 - Pneumonia, unspecified organism Condition: Stable - Follow up/Referral - Patient Discharge Instructions - Post Discharge Activity
[2019-05-20] MEDS ORDERED: ALBUTEROL SO4 2.5/IPRATROPIUM 0.5 INH SOL 3 ML VIAL.NEB. NEB ONE ×2 (12:55→13:08)
[2019-05-20] MEDS ORDERED: ALBUTEROL SO4 0.083% IH SOL 2.5 MG/3 ML VIAL.NEB. NEB ONE (13:06)
[2019-05-20] MEDS ORDERED: ONDANSETRON 4 MG/2 ML VIAL IVPUSH ONE (13:21)
[2019-05-20 13:31] LABS: BASO % 0.3 % (0-2.0); EOS % 0.2 % (0-4.5); HEMATOCRIT 41.6 % (32.4-45.2); HEMOGLOBIN 13.2 GM/dL (10.7-15.3); LYMPH % 8.7 % (8-40); MCH 28.6 pg (25.7-33.7); MCHC 31.8 g/dl (32.0-36.0); MEAN CELL VOLUME 89.9 fl (80-96); MEAN PLT VOLUME 10.8 fl (7.5-11.1); MONO % 4.2 % (3.8-10.2); NEUT % 86.6 % (42.8-82.8); PLATELET COUNT 292 K/MM3 (134-434); RBC 4.63 M/mm3 (3.60-5.2); WHITE BLOOD COUNT 12.5 K/mm3 (4.0-10.0)
[2019-05-20] MEDS ORDERED: ONDANSETRON 4 MG/2 ML VIAL ONE (13:32)
[2019-05-20 14:05] LABS: ALBUMIN 4.1 g/dl (3.4-5.0); BILIRUBIN,TOTAL 1.7 mg/dL (0.2-1); BLOOD UREA NITROGEN 12.9 mg/dL (7-18); CALCIUM 9.7 mg/dL (8.5-10.1); CREATININE 0.8 mg/dL (0.55-1.3); POTASSIUM 4.2 mmol/L (3.5-5.1)
[2019-05-20] MEDS ORDERED: CEFTRIAXONE 1,000 MG in DEXTROSE 5%-WATER - 50 ML IVPB ONE (14:15)
[2019-05-20] MEDS ORDERED: methylPREDNISolone NA SUCC 125 MG/2 ML VIAL IVPB ONE (14:15)
[2019-05-20] MEDS ORDERED: AZITHROMYCIN IVPB 500 MG in DEXTROSE 5%-WATER - 250 ML IVPB ONE (14:16)
[2019-05-20] MEDS ORDERED: CEFTRIAXONE 1 GM/50 ML BAG ONE (14:35)
[2019-05-20] MEDS ORDERED: methylPREDNISolone NA SUCC 125 MG/2 ML VIAL ONE (14:35)
--- NOTE | 2019-05-20 14:36 | PDOC ---
Documentation entered by Cortney Carr SCRIBE, acting as scribe for Nikia Crews MD. Nikia Crews MD: This documentation has been prepared by the Lilly barfield Xhesika, SCRIBE, under my direction and personally reviewed by me in its entirety. I confirm that the documentation accurately reflects all work, treatment, procedures, and medical decision making performed by me. Attending Attestation - Resident Resident Name: Alexis Alvarado - ED Attending Attestation I have performed the following: I have examined & evaluated the patient, The case was reviewed & discussed with the resident, I agree w/resident's findings & plan, Exceptions are as noted - HPI HPI: 05/20/19 13:30 The patient is a 73 year old female, with a significant PMH of COPD (no home O2 , on prednisone), HTN, MVP, HLD, asthma, and RA, who presents to the ED for SOB and productive cough after her colonoscopy. Patient had a routine colonoscopy done this morning with Dr. Fofana (GI). Dr. Fofana notes the patient was intubated and needed suctioning during the procedure, however not SOB afterwards. Patient reports being NPO after midnight last night and felt nauseous this morning. The patient denies chest pain, headache and dizziness. Denies fever, chills, vomiting, diarrhea and constipation. Denies dysuria, frequency, urgency and hematuria. Allergies: Amitriptyline, imipramine Surgical History: Abdominal hernia, cholecystectomy Social History: Denies EtOH, tobacco, or illicit drug use PCP: Dr. Esteves GI: Dr. Fofana - Physicial Exam PE: 05/20/19 14:32 Awake alert patient is in mild distress with increased work of breathing. Bilateral lung sounds with expiratory wheezes there is some inspiratory upper airway noise no stridor heart is regular tachycardia no murmurs rubs or gallops abdomen is soft nontender extremities are warm and well-perfused there is noted peripheral edema no calf tenderness. Patient is awake alert and oriented x3 - Medical Decision Making 05/20/19 14:33 73-year-old female history of rheumatoid arthritis hypertension COPD here today following routine screening colonoscopy with sudden onset shortness of breath and wheezing. Patient states her symptoms started several hours after the test denies any history of PE or DVT no current chest pain states she has been coughing up thick yellow phlegm no fever recently colonoscopy was performed by Dr. Fofana My exam patient is awake alert tachypneic with increased work of breathing and wheezing bilaterally with productive phlegm. Differential includes pneumonia, aspiration secondary to sedation during the procedure, allergic reaction infection COPD exacerbation. Plan CBC CMP EKG troponin chest x-ray patient was treated with bronchodilators and steroids did show much response. Unofficial screening bedside lung ultrasound showed focal B -lines in the left base x-ray of the left base shows concerning for obscuration of the left heart border and possible left lower lung opacification will cover her for accommodation of COPD and possible pneumonia with ceftriaxone and azithromycin. Discussed with Dr. Fofana who states the patient was not intubated during the procedure but it was otherwise routine and uncomplicated colonoscopy patient is much improved however due to severity of her presentation will admit for COPD exacerbation and pneumonia Heart Score/ECG Review #1 General ECG Interpretation: Sinus Rhythm, Normal Intervals, No acute ischemic changes Compared to previous ECG there are: Other (sinus tachycardia 103 bpm, no st elevation or depression.)
[2019-05-20] MEDS ORDERED: AZITHROMYCIN IVPB 500 MG/250 ML BAG IVPB ONE (15:32)
[2019-05-20] MEDS ORDERED: ALBUTEROL SO4 0.083% IH SOL 2.5 MG/3 ML VIAL.NEB. NEB PRN (16:10)
--- NOTE | 2019-05-20 16:47 | HP ---
CHIEF COMPLAINT: SOB and cough PCP: Dr. Esteves HISTORY OF PRESENT ILLNESS: Patient is a 73 year old female with PMH of COPD (not on home O2), HTN, MVP, rheumatoid arthritis who presents with SOB and productive cough s/p colonoscopy this morning. Pt was seen by Dr. Fofana this morning for routine colonoscopy. She was not intubated during procedure but was sedated with propofol and needed oropharyngeal suctioning during the procedure. Per Dr. Fofana, she had a mild cough post-op but no other symptoms and was brought home by her sister. Ten minutes after arriving home, pt began experiencing a severe productive cough of yellow/brown frothy sputum associated with SOB. Pt's sister called 911 and she was brought to ED by EMS. Pt reports she has had a dry cough intermittently over the past week with mild nasal congestion. She denies any fevers, chills, or dyspnea prior to today. No sick contacts. Pt received her flu shot this year. Of note, pt is not on home O2 for COPD and does not follow up with a clinical informatics manager regularly. She has never been hospitalized for COPD or intubated. Pt reports that she has never had similar symptoms or events after surgery or procedures in the past. ER course was notable for: (1) CXR: no acute processes; clear well aerated lungs (preliminary report) (2) Duonebs and IV Solumedrol given, pt improved (3) WBC: 12.5 Recent Travel: denies PAST MEDICAL HISTORY: As per HPI PAST SURGICAL HISTORY: Cholecystectomy Hysterectomy Social History: Smoking: never Alcohol: denies Drugs: denies Allergies amitriptyline HCl [From Elavil] Allergy (Verified 03/07/19 14:34) affects liver imipramine HCl [From Tofranil] Allergy (Verified 03/07/19 14:34) HOME MEDICATIONS: Home Medications Medication Instructions Recorded Amlodipine Besylate [Norvasc -] 10 mg PO DAILY 10/17/14 Atorvastatin Ca [Lipitor] 0 mg PO HS 08/07/17 Bisacodyl [Dulcolax -] 5 mg PO DAILY 05/20/19 Folic Acid 1 mg PO DAILY 05/20/19 Methotrexate Sodium [Methotrexate] 10 mg PO DAILY 05/20/19 Polyethylene Glycol 3350 17 gm PO DAILY 05/20/19 Prednisone 5 mg PO DAILY 05/20/19 REVIEW OF SYSTEMS CONSTITUTIONAL: Absent: fever, chills, diaphoresis, generalized weakness, malaise, loss of appetite, weight change HEENT: rhinorrhea, nasal congestion Absent: throat pain, throat swelling, difficulty swallowing, mouth swelling, ear pain, eye pain, visual changes CARDIOVASCULAR: Absent: chest pain, syncope, palpitations, irregular heart rate, lightheadedness , peripheral edema RESPIRATORY: cough, shortness of breath Absent: dyspnea with exertion, orthopnea, wheezing, stridor, hemoptysis GASTROINTESTINAL: nausea Absent: abdominal pain, abdominal distension, vomiting, diarrhea, constipation, melena, hematochezia GENITOURINARY: Absent: dysuria, frequency, urgency, hesitancy, hematuria, flank pain, genital pain MUSCULOSKELETAL: Absent: myalgia, arthralgia, joint swelling, back pain, neck pain SKIN: Absent: rash, itching, pallor HEMATOLOGIC/IMMUNOLOGIC: Absent: easy bleeding, easy bruising, lymphadenopathy, frequent infections ENDOCRINE: Absent: unexplained weight gain, unexplained weight loss, heat intolerance, cold intolerance NEUROLOGIC: Absent: headache, focal weakness or paresthesias, dizziness, unsteady gait, seizure, mental status changes, bladder or bowel incontinence PSYCHIATRIC: Absent: anxiety, depression, suicidal or homicidal ideation, hallucinations. PHYSICAL EXAMINATION Vital Signs - 24 hr 05/20/19 05/20/19 05/20/19 12:35 12:57 13:00 Temperature 98.5 F Pulse Rate 104 H 100 H Pulse Rate [ Apical] Respiratory 16 Rate Blood Pressure 137/87 Blood Pressure [Right Arm] O2 Sat by Pulse 100 98 98 Oximetry (%) 05/20/19 15:30 Temperature Pulse Rate Pulse Rate [ 104 H Apical] Respiratory 16 Rate Blood Pressure Blood Pressure 121/73 [Right Arm] O2 Sat by Pulse 100 Oximetry (%) GENERAL: Awake, alert, and fully oriented, in no acute distress. HEAD: Normal with no signs of trauma. EYES: Proptosis BL. Pupils equal, round and reactive to light, extraocular movements intact, sclera anicteric, conjunctiva clear. No lid lag. EARS, NOSE, THROAT: Ears normal, nares patent, oropharynx clear without exudates. Moist mucous membranes. NECK: Normal range of motion, supple without lymphadenopathy, JVD, or masses. LUNGS: Mild expiratory wheezes throughout. Good air entry. No wheezes or rales. No accessory muscle use. HEART: Regular rate and rhythm, normal S1 and S2 without murmur, rub or gallop. ABDOMEN: Soft, nontender, not distended, normoactive bowel sounds, no guarding, no rebound, no masses. No hepatomegaly or splenomegaly. MUSCULOSKELETAL: Normal range of motion at all joints. No bony deformities or tenderness. No CVA tenderness. UPPER EXTREMITIES: 2+ pulses, warm, well-perfused. No cyanosis. No clubbing. No peripheral edema. LOWER EXTREMITIES: 2+ pulses, warm, well-perfused. No calf tenderness. Trace peripheral edema L>R. NEUROLOGICAL: Cranial nerves II-XII intact. Normal speech. Normal gait. PSYCHIATRIC: Cooperative. Good eye contact. Appropriate mood and affect. SKIN: Warm, dry, normal turgor, no rashes or lesions noted, normal capillary refill. Laboratory Results - last 24 hr CBC, BMP 05/20/19 13:00 05/20/19 13:00 ASSESSMENT/PLAN: Patient is a 73 year old female with PMH of COPD (not on home O2), HTN, MVP, rheumatoid arthritis who presents with SOB and productive cough s/p colonoscopy this morning. #COPD exacerbation vs Community acquired PNA CXR: no acute chest process seen Pt given IV ceftriaxone and azithromycin in ED. Start Unasyn 1.5mg Q6H empirically Prednisone 40mg daily Duonebs QID and albuterol prn Resp viral panel (PCR) Monitor respiratory status Will cx if fever spikes #Bilirubinemia Elevated T Bili: 1.7 F/u direct bili #HTN Cont home meds amlodipine 10mg daily #HLD Cont lipitor 20mg daily #Rheumatoid arthritis Takes methotrexate 20mg Q7D. Hold for now #FEN IV NS @ 75ml/hr Na-controlled diet #DVT ppx Lovenox SQ daily #Dispo Observation Visit type - Emergency Visit Emergency Visit: Yes ED Registration Date: 05/20/19 Care time: The patient presented to the Emergency Department on the above date and was hospitalized for further evaluation of their emergent condition. - New Patient This patient is new to me today: Yes Date on this admission: 05/20/19 - Critical Care Critical Care patient: No ATTENDING PHYSICIAN STATEMENT I saw and evaluated the patient. I reviewed the resident's note and discussed the case with the resident. I agree with the resident's findings and plan as documented. SUBJECTIVE: OBJECTIVE: ASSESSMENT AND PLAN:
--- NOTE | 2019-05-20 17:14 | PN ---
Teaching Attending Note Name of Resident: Lay Rios ATTENDING PHYSICIAN STATEMENT I saw and evaluated the patient. I reviewed the resident's note and discussed the case with the resident. I agree with the resident's findings and plan as documented with exceptions below. SUBJECTIVE: 73 yof with PMhx of COPD (not on home oxygen, never intubated or seen an pulmonolgist), non smoker, RA on methotrexate/Prednisone (5 mg), HLD was in her USOH yesterday, took bowel prep for colonoscopy after which had an episode of nausea and vomiting today. Had colonoscopy with Dr. Fofana, when received propofol but not intubated, with no concerns. After the procedure, started having worsening cough with dyspnea, so came to ED. s/p solumedrol and nebs in ED with marked improvement. Currently feels better, denies any fevers, chills, URI like illness, increased cough or sputum, sick contacts or travel prior to this episode. OBJECTIVE: Vital Signs Period Temp Pulse Resp BP Sys/Chew Pulse Ox Last 24 Hr 98.5 F 100-104 16-16 121-137/73-87 98-100 Intake & Output 05/17/19 05/18/19 05/19/19 05/20/19 23:59 23:59 23:59 23:59 Weight 138 lb GENERAL: Awake, alert, and fully oriented, in no acute distress. HEAD: Normal with no signs of trauma. EYES: Pupils equal, round and reactive to light, extraocular movements intact, sclera anicteric, conjunctiva clear. No lid lag. EARS, NOSE, THROAT: Ears normal, nares patent, oropharynx clear without exudates. Dry Mucous membrane NECK: Normal range of motion, supple, no JVD noted LUNGS: Breath sounds equal, clear to auscultation bilaterally. No wheezes, and no crackles appreciated currently. No accessory muscle use. HEART: S1S2 regular, tachycardic ABDOMEN: Soft, nontender, not distended, normoactive bowel sounds, no guarding, no rebound, no masses. MUSCULOSKELETAL: Normal range of motion at all joints. No bony deformities or tenderness. No CVA tenderness. UPPER EXTREMITIES: 2+ pulses, warm, well-perfused. No cyanosis. No clubbing. No peripheral edema. LOWER EXTREMITIES: 2+ pulses, warm, well-perfused. No calf tenderness. No peripheral edema. NEUROLOGICAL: AAOx3, Cranial nerves II-XII intact. Normal speech. Gait not observed PSYCHIATRIC: Cooperative. Good eye contact. Appropriate mood and affect. SKIN: Warm, dry, decreased turgor, no rashes or lesions noted, normal capillary refill. Home Medications Medication Instructions Recorded Amlodipine Besylate [Norvasc -] 10 mg PO DAILY 10/17/14 Atorvastatin Ca [Lipitor] 20 mg PO HS 08/07/17 Bisacodyl [Dulcolax -] 5 mg PO DAILY 05/20/19 Folic Acid 1 mg PO DAILY 05/20/19 Methotrexate Sodium [Methotrexate] 10 mg PO DAILY 05/20/19 Polyethylene Glycol 3350 17 gm PO DAILY 05/20/19 Prednisone 5 mg PO DAILY 05/20/19 Active Medications Albuterol Sulfate (Ventolin 0.083% Nebulizer Soln -) 1 amp NEB Q6H PRN PRN Reason: SHORT OF BREATH/WHEEZING Albuterol/Ipratropium (Duoneb -) 1 amp NEB RQID [facility] Amlodipine Besylate (Norvasc -) 10 mg PO DAILY [facility] Atorvastatin Calcium (Lipitor -) 20 mg PO HS [facility] Folic Acid (Folic Acid -) 1 mg PO DAILY [facility] Heparin Sodium (Porcine) (Heparin -) 5,000 unit SQ TID [facility] Ampicillin Sodium/Sulbactam (Sodium 1.5 gm/ Sodium Chloride) 100 mls @ 200 mls/ hr IVPB Q6H-IV [facility] Sodium Chloride (Normal Saline -) 1,000 mls @ 75 mls/hr IV ASDIR [facility] Methotrexate (Mexate -) 20 mg PO Q7D [facility] Prednisone (Deltasone -) 5 mg PO DAILY [facility] Laboratory Results - last 24 hr 05/20/19 05/20/19 05/20/19 13:00 13:00 13:00 WBC 12.5 H RBC 4.63 Hgb 13.2 Hct 41.6 MCV 89.9 MCH 28.6 MCHC 31.8 L RDW 15.0 Plt Count 292 MPV 10.8 Absolute Neuts (auto) 10.8 H Neutrophils % 86.6 H D Lymphocytes % 8.7 D Monocytes % 4.2 Eosinophils % 0.2 D Basophils % 0.3 Nucleated RBC % 0 Sodium 139 Potassium 4.2 Chloride 106 Carbon Dioxide 28 Anion Gap 6 L BUN 12.9 Creatinine 0.8 Est GFR (CKD-EPI)AfAm 83.59 Est GFR (CKD-EPI)NonAf 72.12 Random Glucose 102 Calcium 9.7 Total Bilirubin 1.7 H AST 21 ALT 20 Alkaline Phosphatase 82 Creatine Kinase 86 Troponin I < 0.02 B-Natriuretic Peptide 39.0 Total Protein 7.0 Albumin 4.1 CXR ?LLL airspace disease EKG NSR, artifactual baseline, LVH ASSESSMENT AND PLAN: 73 yof with PMHx of COPD (not on home oxygen, never intubated or seen an pulmonolgist), non smoker, RA on methotrexate/Prednisone (5 mg), HLD admitted with cough/dsypnea after colonoscpy/sedation today -Suspected Aspiration Pneumonitis, vs PNA -Acute COPD exacerbation -Sinus tachycardia,suspect from nebs/dehydration -Dehydration -RA on methotrexate/Prednisone -HLD Plan: Unasyn, prednisone 40 mg daily standing and prn nebs. Monitor respiratory status. Culture if spikes. IVF, bedside swallow screen, advance diet if tolerates Hold methotrexate (takes on Saturday) Continue statin. DVTPPX lovenox Dispo admit to [facility] [place] [facility] dc in 24 hours on PO abx/steroids if continues to improve Plan discussed with patient in detail, all questions answered total admit time 55 min.
[2019-05-20 18:18] VITALS: BMI 20.2
[2019-05-20] MEDS: ALBUTEROL SO4 2.5/IPRATROPIUM 0.5 INH SOL 3 ML VIAL.NEB. NEB SCH (21:00)
[2019-05-20] MEDS ORDERED: AMPICILLIN NA/SULBACTAM NA 1.5 GM in SODIUM CHLORIDE 100 ML IVPB SCH (21:00)
[2019-05-20] MEDS ORDERED: HEPARIN NA (PORCINE) 5,000 UNITS/ML 1ML VIAL SQ SCH (22:00)
[2019-05-20] MEDS: ATORVASTATIN CA 20 MG TABLET (FP) PO SCH (22:49)
[2019-05-20] MEDS: AMPICILLIN NA/SULBACTAM NA 3 GM in SODIUM CHLORIDE 100 ML IVPB SCH (22:49)
[2019-05-20] MEDS: SODIUM CHLORIDE 1,000 ML IV SCH (22:49)
[2019-05-21] MEDS: AMPICILLIN NA/SULBACTAM NA 3 GM in SODIUM CHLORIDE 100 ML IVPB SCH ×4 (03:28→21:18)
[2019-05-21 07:12] LABS: BASO % 0.1 % (0-2.0); HEMOGLOBIN 11.3 GM/dL (10.7-15.3); LYMPH % 4.5 % (8-40); MCH 28.8 pg (25.7-33.7); MCHC 32.4 g/dl (32.0-36.0); MEAN CELL VOLUME 88.9 fl (80-96); MEAN PLT VOLUME 9.6 fl (7.5-11.1); MONO % 2.8 % (3.8-10.2); NEUT % 92.6 % (42.8-82.8); PLATELET COUNT 263 K/MM3 (134-434); RBC 3.94 M/mm3 (3.60-5.2); RDW 14.8 % (11.6-15.6); WHITE BLOOD COUNT 11.9 K/mm3 (4.0-10.0)
[2019-05-21 07:58] LABS: BLOOD UREA NITROGEN 14.2 mg/dL (7-18); CALCIUM 9.1 mg/dL (8.5-10.1); CREATININE 0.8 mg/dL (0.55-1.3); MAGNESIUM 2.2 mg/dL (1.8-2.4); PHOSPHOROUS 3.4 mg/dL (2.5-4.9)
[2019-05-21] MEDS: ALBUTEROL SO4 2.5/IPRATROPIUM 0.5 INH SOL 3 ML VIAL.NEB. NEB SCH ×4 (08:00→20:43)
[2019-05-21] MEDS ORDERED: PT OWN MED DRAWER 7, Y5N ONE ×2 (09:42→15:12)
[2019-05-21] MEDS: predniSONE 20 MG TABLET (UD) PO SCH (09:44)
[2019-05-21] MEDS: ENOXAPARIN NA (PORCINE) 40 MG/0.4 ML DISP.SYRIN SQ SCH (09:45)
[2019-05-21] MEDS: FOLIC ACID 1 MG TABLET (FP) PO SCH (09:45)
[2019-05-21] MEDS: amLODIPine BESYLATE 10 MG TABLET (FP) PO SCH (09:45)
[2019-05-21] MEDS ORDERED: predniSONE 5 MG TABLET (UD) PO SCH (10:00)
[2019-05-21] MEDS ORDERED: METHOTREXATE 2.5 MG TABLET PO SCH (10:00)
[2019-05-21 10:14] LABS: ANISOCYTOSIS 1+; PLATELET ESTIMATE NORMAL
--- NOTE | 2019-05-21 11:46 | PN ---
Progress Note (short form) - Note Progress Note: Anesthesia POD#1 S/P colonoscopy under sedation at [facility] Then she was examined in the ER for cough and SOB During colonoscopy she started staining and vomiting,throat was suctioned and procedure was completed. Post/op she was fine except some residual cough. I saw her today,she is doing better vitals are stable within normal limits. NO SOB, afebrile,Doing well. A/P Agree with the ER evaluation of exacerbation of COPD after the colonoscopy. Responding to the treatment very well. Discharge as per the medical service. Ale Juarez MD.
--- NOTE | 2019-05-21 12:39 | EKG ---
Test Reason : Blood Pressure : / mmHG Vent. Rate : 103 BPM Atrial Rate : 103 BPM P-R Int : 138 ms QRS Dur : 060 ms QT Int : 346 ms P-R-T Axes : 000 055 056 degrees QTc Int : 453 ms POOR DATA QUALITY, INTERPRETATION MAY BE ADVERSELY AFFECTED SINUS TACHYCARDIA OTHERWISE NORMAL ECG WHEN COMPARED WITH ECG OF 07-MAR-2019 19:06, NO SIGNIFICANT CHANGE WAS FOUND Confirmed by ZARINA LARA, RAIMUNDO ([id number]) on 05/21/2019 12:39:40 PM Referred By: Confirmed By:RAIMUNDO SRINIVASAN MD
--- NOTE | 2019-05-21 12:39 | EKG ---
Test Reason : Blood Pressure : / mmHG Vent. Rate : 098 BPM Atrial Rate : 098 BPM P-R Int : 140 ms QRS Dur : 070 ms QT Int : 372 ms P-R-T Axes : -01 056 058 degrees QTc Int : 474 ms NORMAL SINUS RHYTHM SEPTAL INFARCT (CITED ON OR BEFORE 07-MAR-2019) ABNORMAL ECG WHEN COMPARED WITH ECG OF 07-MAR-2019 19:06, QUESTIONABLE CHANGE IN INITIAL FORCES OF SEPTAL LEADS Confirmed by RAIMUNDO SRINIVASAN MD ([id number]) on 05/21/2019 12:38:57 PM Referred By: Confirmed By:RAIMUNDO SRINIVASAN MD
--- NOTE | 2019-05-21 15:25 | PN ---
Teaching Attending Note Name of Resident: Lay Rios ATTENDING PHYSICIAN STATEMENT I saw and evaluated the patient. I reviewed the resident's note and discussed the case with the resident. I agree with the resident's findings and plan as documented with exceptions below. SUBJECTIVE: Patient seen and examined, breathing improved. Weak but tolerating diet well. OBJECTIVE: Vital Signs Period Temp Pulse Resp BP Sys/Chew Pulse Ox Last 24 Hr 98.2 F-99.3 F 77-118 15-18 112-134/58-77 97-97 Intake & Output 05/18/19 05/19/19 05/20/19 05/21/19 23:59 23:59 23:59 23:59 Intake Total 100 Balance 100 Weight 129 lb 9.6 oz General: sitting in bed, no acute distress Chest: good air entry bilaterally, no rales or wheezing Abdomen;Soft, NT Extremities: no edema Home Medications Medication Instructions Recorded Amlodipine Besylate [Norvasc -] 10 mg PO DAILY 10/17/14 Atorvastatin Ca [Lipitor] 20 mg PO HS 08/07/17 Bisacodyl [Bisacodyl -] 5 mg PO DAILY 05/20/19 Folic Acid 1 mg PO DAILY 05/20/19 Methotrexate Sodium [Methotrexate] 10 mg PO DAILY 05/20/19 Polyethylene Glycol 3350 17 gm PO DAILY 05/20/19 Prednisone 5 mg PO DAILY 05/20/19 Albuterol Sulfate Inhaler - 1 - 2 inh PO Q4H PRN #1 inhaler 05/21/19 [Ventolin HFA Inhaler -] Amox-Tr/K Cl [Augmentin - 875Mg 1 tab PO BID #10 tablet 05/21/19 Tablet] predniSONE [Deltasone -] See Taper PO DAILY #20 tablet 05/21/19 Active Medications Albuterol Sulfate (Ventolin 0.083% Nebulizer Soln -) 1 amp NEB Q6H PRN PRN Reason: SHORT OF BREATH/WHEEZING Albuterol/Ipratropium (Duoneb -) 1 amp NEB RQID [facility] Last Admin: 05/21/19 15:19 Dose: 1 amp Amlodipine Besylate (Norvasc -) 10 mg PO DAILY [facility] Last Admin: 05/21/19 09:45 Dose: 10 mg Atorvastatin Calcium (Lipitor -) 20 mg PO HS [facility] Last Admin: 05/20/19 22:49 Dose: 20 mg Enoxaparin Sodium (Lovenox -) 40 mg SQ DAILY [facility] Last Admin: 05/21/19 09:45 Dose: 40 mg Folic Acid (Folic Acid -) 1 mg PO DAILY [facility] Last Admin: 05/21/19 09:45 Dose: 1 mg Sodium Chloride (Normal Saline -) 1,000 mls @ 75 mls/hr IV ASDIR [facility] Last Admin: 05/20/19 22:49 Dose: 75 mls/hr Ampicillin Sodium/Sulbactam (Sodium 3 gm/ Sodium Chloride) 100 mls @ 200 mls/ hr IVPB Q6H-IV [facility] Last Admin: 05/21/19 15:15 Dose: 200 mls/hr Prednisone (Deltasone -) 40 mg PO DAILY [facility] Last Admin: 05/21/19 09:44 Dose: 40 mg Laboratory Results - last 24 hr 05/20/19 05/21/19 05/21/19 19:00 06:30 06:30 WBC 11.9 H RBC 3.94 Hgb 11.3 Hct 35.0 D MCV 88.9 MCH 28.8 MCHC 32.4 RDW 14.8 Plt Count 263 MPV 9.6 D Absolute Neuts (auto) 11.0 H Neutrophils % 92.6 H Neutrophils % (Manual) 91.0 H Band Neutrophils % 0.0 Lymphocytes % 4.5 L D Lymphocytes % (Manual) 1.0 L Monocytes % 2.8 L Monocytes % (Manual) 4 Eosinophils % 0.0 D Eosinophils % (Manual) 0.0 Basophils % 0.1 Basophils % (Manual) 0.0 Myelocytes % (Man) 0 Promyelocytes % (Man) 0 Blast Cells % (Manual) 0 Nucleated RBC % 0 Metamyelocytes 0 Hypochromia 0 Platelet Estimate Normal Polychromasia 0 Poikilocytosis 1+ Anisocytosis 1+ [place] Cells 1+ Sodium 140 Potassium 4.0 Chloride 107 Carbon Dioxide 26 Anion Gap 6 L BUN 14.2 Creatinine 0.8 Est GFR (CKD-EPI)AfAm 83.59 Est GFR (CKD-EPI)NonAf 72.12 Random Glucose 131 H Calcium 9.1 Phosphorus 3.4 Magnesium 2.2 Influenza A (Rapid) Negative Influenza B (Rapid) Negative ASSESSMENT AND PLAN: 73 yof with PMHx of COPD (not on home oxygen, never intubated or seen an pulmonolgist), non smoker, RA on methotrexate/Prednisone (5 mg), HLD admitted with cough/dsypnea after colonoscpy/sedation today -Suspected Aspiration Pneumonitis, vs PNA -Acute COPD exacerbation -Sinus tachycardia,suspect from nebs/dehydration -Dehydration -RA on methotrexate/Prednisone -HLD Plan: Imprvoed, WBC better, oxygenating well, no home oxygen needs transition to PO augmentin/Prednisone on dc PT eval dispo dc home later today pending PT eval, if needs additional disposition arrangements. discussed with patient in detail, all questions answered.
--- NOTE | 2019-05-21 15:53 | DS ---
Physical Exam: SUBJECTIVE: Patient seen and examined. No acute events overnight. Pt denies SOB and cough has improved. She denies fevers or chills. OBJECTIVE: Vital Signs Period Temp Pulse Resp BP Sys/Chew Pulse Ox Last 24 Hr 98.2 F-99.3 F 77-118 15-18 112-134/58-77 97-97 PHYSICAL EXAM GENERAL: The patient is awake, alert, and fully oriented, in no acute distress. HEAD: Normal with no signs of trauma. NECK: Trachea midline, full range of motion, supple. LUNGS: Faint expiratory wheezes, good air entry throughout. Breath sounds equal , no crackles, no accessory muscle use. HEART: Regular rate and rhythm, S1, S2 without murmur, rub or gallop. ABDOMEN: Soft, nontender, nondistended, normoactive bowel sounds, no guarding, no rebound, no hepatosplenomegaly, no masses. EXTREMITIES: 2+ pulses, warm, well-perfused, trace peripheral edema L>R. SKIN: Warm, dry, normal turgor, no rashes or lesions noted. LABS Laboratory Results - last 24 hr CBC, BMP 05/21/19 06:30 05/21/19 06:30 HOSPITAL COURSE: Date of Admission:05/20/19 Patient is a 73 year old female with PMH of COPD (not on home O2), HTN, MVP, rheumatoid arthritis who presents with SOB and productive cough s/p colonoscopy 1 day ago. Pt was given duonebs, IV solumedrol, and cef/vanc in ED and breathing improved. CXR was negative for any acute processes, lungs well aerated. Pt was started on po prednisone 40mg, IV unasyn, standing duonebs and prn nebs by primary team and observed overnight. Her breathing and cough improved, she satted well on RA, and she had no acute events or complaints. Pre/ post respiratory test was passed and PT eval cleared patient to be discharged home. Her vitals are stable and she is clinically stable to be discharged home with prescription for augmentin ds 875 BID x5 days, po prednisone taper, and an albuterol inhaler. Pt will also be referred to pulmonology, Dr. Abreu, for outpatient f/u. Date of Discharge: 05/21/19 Minutes to complete discharge: 45 Discharge Summary Problems reviewed: Yes Reason For Visit: COUGH Current Active Problems COPD exacerbation (Acute) Cough (Acute) Dyspnea (Acute) PNA (pneumonia) (Acute) Condition: Stable - Instructions Diet, Activity, Other Instructions: Your visit: You were admitted to the hospital for a cough and difficulty breathing. We treated you with steroids, albuterol inhaler, and antibiotics and your symptoms improved. You can continue to take these medications at home and are stable to be discharged. Medications: You should take Prednisone at home as follows: - Take 40mg prednisone (4 pills) daily for TWO MORE DAYS starting tomorrow (-05/23), then - Take 30mg prednisone (3 pills) daily for TWO DAYS (05/24-05/25), then - Take 20mg prednisone (2 pills) daily for TWO DAYS (05/26-05/27), then - Take 10mg prednisone (1 pill) daily for TWO DAYS (05/28-05/29). After completing this course of steroids, you can resume your home dose of 5mg Prednisone daily. Take Augmentin 875mg twice a day (morning and evening) for 5 days starting tonight. We prescribed you with an Albuterol Inhaler which you should use 3-4 times a day , as needed, for any difficulty breathing. Resume all other home medications as prescribed. Follow-up: - Please follow up with your primary care provider. Dr. Esteves, in one week. - You should visit a [facility], Dr. Abreu, in one week for further management of your COPD. We provided you with a referral. Call 911 or return to the emergency department if you experience worsening cough , difficulty breathing, chest pain, fevers, chills, or any other symptoms. Referrals: Charly Abreu MD [Staff Physician] - German Esteves MD [Primary Care Provider] - Disposition: VNS/HOME HEALTH CARE - Home Medications Comprehensive Discharge Medication List: Ambulatory Orders Amlodipine Besylate [Norvasc -] 10 mg PO DAILY 10/17/14 Atorvastatin Ca [Lipitor] 20 mg PO HS 08/07/17 Bisacodyl [Bisacodyl -] 5 mg PO DAILY 05/20/19 Folic Acid 1 mg PO DAILY 05/20/19 Methotrexate Sodium [Methotrexate] 10 mg PO DAILY 05/20/19 Polyethylene Glycol 3350 17 gm PO DAILY 05/20/19 Prednisone 5 mg PO DAILY 05/20/19 Albuterol Sulfate Inhaler - [Ventolin HFA Inhaler -] 1 - 2 inh PO Q4H PRN #1 inhaler 05/21/19 Amox-Tr/K Cl [Augmentin - 875Mg Tablet] 1 tab PO BID #10 tablet 05/21/19 predniSONE [Deltasone -] See Taper PO DAILY #20 tablet 05/21/19 This patient is new to me today: No Emergency Visit: No Critical Care patient: No - Discharge Referral Referred to [facility] Med P.C.: No ATTENDING PHYSICIAN STATEMENT I saw and evaluated the patient. I reviewed the resident's note and discussed the case with the resident. I agree with the resident's findings and plan as documented. SUBJECTIVE: OBJECTIVE: ASSESSMENT AND PLAN:
[2019-05-21] MEDS ORDERED: ONDANSETRON HCL 4 MG/5 ML BULK BOTTLE PO ONE (16:08)
[2019-05-21] MEDS ORDERED: ONDANSETRON 4 MG TABLET PO ONE (16:09)
[2019-05-21] MEDS ORDERED: PROCHLORPERAZINE MALEATE 5 MG TABLET PO PRN (17:02)
[2019-05-21] MEDS: ATORVASTATIN CA 20 MG TABLET (FP) PO SCH (21:18)
[2019-05-21] MEDS: SODIUM CHLORIDE 1,000 ML IV SCH (21:27)
[2019-05-22] MEDS ORDERED: PT OWN MED DRAWER 7, Y5N ONE (03:21)
[2019-05-22] MEDS: AMPICILLIN NA/SULBACTAM NA 3 GM in SODIUM CHLORIDE 100 ML IVPB SCH ×2 (03:24→10:08)
[2019-05-22] MEDS: ALBUTEROL SO4 2.5/IPRATROPIUM 0.5 INH SOL 3 ML VIAL.NEB. NEB SCH ×2 (08:51→11:43)
[2019-05-22] MEDS: predniSONE 20 MG TABLET (UD) PO SCH (09:00)
[2019-05-22] MEDS: FOLIC ACID 1 MG TABLET (FP) PO SCH (09:00)
[2019-05-22] MEDS: amLODIPine BESYLATE 10 MG TABLET (FP) PO SCH (09:00)
[2019-05-22] MEDS: ENOXAPARIN NA (PORCINE) 40 MG/0.4 ML DISP.SYRIN SQ SCH (09:01)
[2019-05-22 09:14] LABS: BLOOD UREA NITROGEN 10.5 mg/dL (7-18); CALCIUM 8.9 mg/dL (8.5-10.1); CREATININE 0.7 mg/dL (0.55-1.3); MAGNESIUM 2.4 mg/dL (1.8-2.4); POTASSIUM 3.7 mmol/L (3.5-5.1)
--- NOTE | 2019-05-22 11:00 | PN ---
Teaching Attending Note Name of Resident: Lay Rios ATTENDING PHYSICIAN STATEMENT I saw and evaluated the patient. I reviewed the resident's note and discussed the case with the resident. I agree with the resident's findings and plan as documented with exceptions below. SUBJECTIVE: Patient seen and examined. no further vomiting, tolerating diet well. No fevers , chills. OBJECTIVE: Vital Signs Period Temp Pulse Resp BP Sys/Chew Pulse Ox Last 24 Hr 97.0 F-98.9 F 71-104 17-20 106-130/56-78 96-97 Intake & Output 05/19/19 05/20/19 05/21/19 05/22/19 23:59 23:59 23:59 23:59 Intake Total 1300 600 Balance 1300 600 Weight 129 lb 9.6 oz 129 lb General: sitting in bed, no acute distress chest: few left basilar rales, no wheezing, good air entry bilaterally Abdomen;Soft, NT Extremities: no edema Home Medications Medication Instructions Recorded Amlodipine Besylate [Norvasc -] 10 mg PO DAILY 10/17/14 Atorvastatin Ca [Lipitor] 20 mg PO HS 08/07/17 Bisacodyl [Bisacodyl -] 5 mg PO DAILY 05/20/19 Folic Acid 1 mg PO DAILY 05/20/19 Methotrexate Sodium [Methotrexate] 10 mg PO DAILY 05/20/19 Polyethylene Glycol 3350 17 gm PO DAILY 05/20/19 Prednisone 5 mg PO DAILY 05/20/19 Albuterol Sulfate Inhaler - 1 - 2 inh PO Q4H PRN #1 inhaler 05/21/19 [Ventolin HFA Inhaler -] Amox-Tr/K Cl [Augmentin - 875Mg 1 tab PO BID #10 tablet 05/21/19 Tablet] Ondansetron HCl [Zofran] 5 mg PO DAILY PRN #5 tablet 05/21/19 predniSONE [Deltasone -] See Taper PO DAILY #20 tablet 05/21/19 Walker [Ultra-Light Rollator] 1 each [facility] DAILY #1 each 05/22/19 Laboratory Results - last 24 hr 05/22/19 08:10 Sodium 142 Potassium 3.7 Chloride 110 H Carbon Dioxide 28 Anion Gap 5 L BUN 10.5 Creatinine 0.7 Est GFR (CKD-EPI)AfAm 98.23 Est GFR (CKD-EPI)NonAf 84.75 Random Glucose 86 Calcium 8.9 Magnesium 2.4 ASSESSMENT AND PLAN: 73 yof with PMHx of COPD (not on home oxygen, never intubated or seen an pulmonolgist), non smoker, RA on methotrexate/Prednisone (5 mg), HLD admitted with cough/dsypnea after colonoscpy/sedation today -Suspected LLL Aspiration Pneumonitis, vs PNA -Acute COPD exacerbation -Sinus tachycardia,suspect from nebs/dehydration -Dehydration -Gait instability -RA on methotrexate/Prednisone -HLD Plan: Imprvoed, WBC better, oxygenating well, no home oxygen needs Transition to PO augmentin/Prednisone on dc PT eval noted. Discussed with patient in detail, declines SNF or home services Explained the need for walker, supervision and fall precautions. Patient relays full understanding of the risks including falls, bleed, fracture and but wants to go home and declines any home services or SNF consideration. Dispo dc home on PO abx and steroids with outpatient follow up.
[2019-05-22 13:51] VITALS: BP 127/51; PULSE 105; TEMP 98.3
[2019-05-22] MEDS ORDERED: METHOTREXATE 2.5 MG TABLET PO SCH (17:15)
[2019-05-24] MEDS ORDERED: METHOTREXATE 2.5 MG TABLET PO SCH (10:00)
== END 2019-05-22 14:29 | disposition home or self-care (01) | DRG 178 ==
LOC: JER 12:22 → UNDOADMOB 14:43 → JERBED 14:43 → INTOOBSV 14:43 → JERBED 16:05 → J7W 17:28 → JERBED 17:28 → J7W 17:28 → OBSVTOIN 05-21 16:30
PROVIDERS: ADMIT Hospitalist; ATTEND Hospitalist
DX: J69.0 Pneumonitis due to inhalation of food and vomit (principal); J44.1 Chronic obstructive pulmonary disease with (acute) exacerbation; J90 Pleural effusion, not elsewhere classified; I10 Essential (primary) hypertension; M06.9 Rheumatoid arthritis, unspecified; I34.1 Nonrheumatic mitral (valve) prolapse; E78.00 Pure hypercholesterolemia, unspecified; E80.4 Gilbert syndrome; E86.0 Dehydration; R00.0 Tachycardia, unspecified; R26.9 Unspecified abnormalities of gait and mobility; Y83.8 Other surgical procedures as the cause of abnormal reaction of the patient, or of later complication, without mention of misadventure at the time of the procedure
CPT/HCPCS: 36415; 71045-TC-FY; 80048; 80053; 82550; 83735; 83880; 84100; 84484; 85025; 87633; 87804; 93005; 93010; 94640; 94761; 97116-GP; 97161-GP; 99284-25; G0378; J7030

== ENCOUNTER 2019-05-29 15:38 | Emergency (ER) | payer BC ==
[2019-05-29 15:49] VITALS: TEMP 97.7; BMI 20.2
[2019-05-29] MEDS ORDERED: IBUPROFEN 600 MG TABLET (FP) PO ONE ×2 (19:48→19:51)
--- NOTE | 2019-05-29 19:49 | PDOC ---
History of Present Illness - General Chief Complaint: Pain Stated Complaint: ABD PAIN/VOMITING Time Seen by Provider: 05/29/19 17:57 - History of Present Illness Initial Comments: Ms. Angel Kumar is a 73 y/o female with PMH significant for COPD, HTN, HLD, presenting today with left hip pain that radiates down the left lateral thigh. Reports that this pain started 2 days ago. She was recently d/c from the hospital a week ago for pneumonia and COPD exacerbation. Denies recent fall or trauma. Denies headache, chest pain, shortness of breath, abdominal pain, dysuria, changes in stool. Did not try any medication. Past History - Past Medical History Allergies/Adverse Reactions: Allergies Allergy/AdvReac Type Severity Reaction Status Date / Time amitriptyline HCl Allergy Verified 05/29/19 15:50 [From Elavil] imipramine HCl Allergy Verified 05/29/19 15:50 [From Tofranil] Home Medications: Ambulatory Orders Amlodipine Besylate [Norvasc -] 10 mg PO DAILY 10/17/14 Atorvastatin Ca [Lipitor] 20 mg PO HS 08/07/17 Bisacodyl [Bisacodyl -] 5 mg PO DAILY 05/20/19 Folic Acid 1 mg PO DAILY 05/20/19 Methotrexate Sodium [Methotrexate] 10 mg PO DAILY 05/20/19 Polyethylene Glycol 3350 17 gm PO DAILY 05/20/19 Prednisone 5 mg PO DAILY 05/20/19 Albuterol Sulfate Inhaler - [Ventolin HFA Inhaler -] 1 - 2 inh PO Q4H PRN #1 inhaler 05/21/19 Amox-Tr/K Cl [Augmentin - 875Mg Tablet] 1 tab PO BID #10 tablet 05/21/19 Ondansetron HCl [Zofran] 5 mg PO DAILY PRN #5 tablet 05/21/19 predniSONE [Deltasone -] See Taper PO DAILY #20 tablet 05/21/19 Walker [Ultra-Light Rollator] 1 each MC DAILY #1 each 05/22/19 Lidocaine 5% Patch [Lidoderm Patch -] 1 patch TP DAILY #7 patch 05/29/19 Asthma: Yes Cardiac Disorders: Yes (MITRAL VALVE PROLAPSE, sob) CVA: No COPD: Yes DVT: No Diabetes: Yes HTN: Yes Hypercholesterolemia: Yes - Surgical History Abdominal Surgery: Yes (HERNIA) Cholecystectomy: Yes - Immunization History Td Vaccination: No Immunization Up to Date: No - Psycho Social/Smoking Cessation Hx Smoking Status: No Smoking History: Never smoked Have you smoked in the past 12 months: No Number of Cigarettes Smoked Daily: 0 Cigars Per Day: 0 Hx Alcohol Use: No Drug/Substance Use Hx: No Substance Use Type: None Hx Substance Use Treatment: No Review of Systems - Review of Systems Comments:: GENERAL/CONSTITUTIONAL: No fever or chills. No weakness._ HEAD, EYES, EARS, NOSE AND THROAT: No change in vision. No change in hearing. No sore throat._ CARDIOVASCULAR: No chest pain or shortness of breath_ RESPIRATORY: Denies cough, hemoptysis_ GASTROINTESTINAL: No nausea, vomiting, diarrhea or constipation._ GENITOURINARY: No dysuria, frequency, or change in urination._ MUSCULOSKELETAL: Left hip and left thigh pain. SKIN: No rash_ NEUROLOGIC: No headache, vertigo, loss of consciousness, or change in strength/ sensation._ ENDOCRINE: No increased thirst. No abnormal weight change_ HEMATOLOGIC/LYMPHATIC: No anemia, easy bleeding, or history of blood clots._ ALLERGIC/IMMUNOLOGIC: No hives or skin allergy._ *Physical Exam - Vital Signs Last Vital Signs Temp Pulse Resp BP Pulse Ox 97.7 F 91 H 18 116/70 100 05/29/19 15:45 05/29/19 15:45 05/29/19 15:45 05/29/19 15:45 05/29/19 15:45 - Physical Exam Comments: GENERAL: Awake, alert, and oriented to person/place/time, in no acute distress_ HEAD: No signs of trauma, normocephalic, atraumatic _ EYES: PERRLA, EOMI, sclera anicteric, conjunctiva clear_ ENT: Hearing grossly normal, nares patent, oropharynx clear without exudates. No uvular deviation. Moist mucosa_ NECK: Normal ROM, supple, no lymphadenopathy, JVD, or masses_ LUNGS: No distress, speaks in full sentences, clear to auscultation bilaterally _ HEART: Regular rate and rhythm, normal S1 and S2, no murmurs appreciated, peripheral pulses normal and equal bilaterally._ ABDOMEN: Soft, nontender, normoactive bowel sounds. No guarding, no rebound. No masses_ EXTREMITIES: Normal range of motion, no edema. No clubbing or cyanosis. LLE: Inspection: No erythema or ecchymosis. TTP left hip. No obvious abnormalities, no open wounds. Compartments soft and compressible, pain within proportion, no pain to passive stretch. No pain on flexion/extension or external/internal rotation. Knee stable to anterior/posterior drawer and varus/valgus stress Sensation: Intact in upper and lower leg Motor: 5/5 EHL, 5/5 FHL, 5/5 TA, 5/5GS, 5/5 Quad, 5/5 Ham Vascular: 2+ DP/PT, all toes BCR <2 sec NEUROLOGICAL: Cranial nerves II through XII grossly intact. Normal speech, normal gait, no focal sensorimotor deficits _ SKIN: Warm, Dry, normal turgor, no rashes or lesions noted_ ED Treatment Course - RADIOLOGY Radiology Studies Ordered: Category Date Time Status FEMUR-LEFT [RAD] Stat Radiology 05/29/19 19:47 Ordered HIP & PELVIS-LEFT [RAD] Stat Radiology 05/29/19 19:47 Ordered Medical Decision Making - Medical Decision Making 05/29/19 19:00 [id number] presenting with left sided hip pain that radiates down the leg. Started 2 days ago. -motrin -XR left hip, pelvis -XR left femur -CXR 05/29/19 22:51 XR of left hip/pelvis/femur show no acute fracture or subluxation. CXR appears negative on self-read. Pt reports significant symptomatic improvement with lidoderm patch. Plan to d/c home with lidoderm patches, f/u PMD as needed. Patient verbalized understanding and agreement with the plan. All questions answered. Discharge - Discharge Information Problems reviewed: Yes Clinical Impression/Diagnosis: Left leg pain Condition: Stable Disposition: HOME - Admission No - Additional Discharge Information Prescriptions: Lidocaine 5% Patch [Lidoderm Patch -] 1 patch TP DAILY #7 patch - Follow up/Referral Referrals: German Esteves MD [Primary Care Provider] - - Patient Discharge Instructions Additional Instructions: Please use the lidoderm patches as needed for your pain. Please make a follow up appointment with your primary care doctor. If you experience any new, worsening, or concerning symptoms, including falls, severe hip pain, leg pain, or any other concerns, please return to the emergency department. - Post Discharge Activity
[2019-05-29 20:11] VITALS: BP 120/72; PULSE 88
--- NOTE | 2019-05-29 20:13 | PDOC ---
Attending Attestation - Resident Resident Name: Alonzo Magaña - ED Attending Attestation I have performed the following: I have examined & evaluated the patient, The case was reviewed & discussed with the resident, I agree w/resident's findings & plan - HPI HPI: 05/29/19 22:49 Pt comes with left hip pain. She is able to range the hip; no falls or accidents. She doesn't know what could be causing this. It is not her usual arthritis. 05/29/19 23:04 Pt had a colonoscopy last week; she thereafter was admitted to our hospital from Wed to Fri for pneumonia. She lives at home with her cat Yin; Pt is able to ambulate and care for herself. However she is afraid and wants to make sure that nothing bad is happending with her hip and femur. She also reports that she is still coughing. Afebrile and no other complaints. - Physicial Exam PE: 05/29/19 23:09 Agree with resident exam. Pt is able to range her left hip and pelvis. She has no abd pain; heart and lungs clear. - Medical Decision Making 05/29/19 22:44 Pt's hip and femur XRays normal 05/29/19 23:10 CXR improved; she is stable for d/c home. She is feeling better after lidoderm and other analgesics here.
[2019-05-29] MEDS ORDERED: LIDOCAINE 5% TOPICAL PATCH TP ONE (21:33)
[2019-05-29] MEDS ORDERED: LIDOCAINE PATCH REMOVAL MC SCH (22:00)
[2019-05-29] MEDS ORDERED: LIDOCAINE 5% TOPICAL PATCH ONE (22:18)
== END 2019-05-29 23:22 | disposition home or self-care (01) ==
LOC: JER 15:38
DX: M25.552 Pain in left hip (principal); I10 Essential (primary) hypertension; E78.5 Hyperlipidemia, unspecified; J44.9 Chronic obstructive pulmonary disease, unspecified; E11.9 Type 2 diabetes mellitus without complications; Z87.01 Personal history of pneumonia (recurrent); Z88.8 Allergy status to other drugs, medicaments and biological substances; Z99.89 Dependence on other enabling machines and devices
CPT/HCPCS: 71045-TC-FY; 73523-TC-FY; 73552-TC-LT-FY; 99283-25

== ENCOUNTER 2021-11-27 00:32 | Emergency (ER) | payer BC ==
[2021-11-27 00:43] VITALS: BP 162/83; PULSE 88; TEMP 97.9; BMI 20.3
[2021-11-27] MEDS ORDERED: ALBUTEROL SO4 2.5/IPRATROPIUM 0.5 INH SOL 3 ML VIAL.NEB. NEB SCH (01:00)
[2021-11-27 01:17] LABS: BASO % 0.8 % (0-2.0); EOS % 2.3 % (0-4.5); HEMATOCRIT 37.2 % (32.4-45.2); HEMOGLOBIN 11.9 GM/dL (10.7-15.3); LYMPH % 20.3 % (8-40); MCH 27.8 pg (25.7-33.7); MCHC 32.1 g/dl (32.0-36.0); MEAN CELL VOLUME 86.5 fl (80-96); MEAN PLT VOLUME 9.1 fl (7.5-11.1); NEUT % 63.6 % (42.8-82.8); PLATELET COUNT 244 10^3/uL (134-434); RDW 15.2 % (11.6-15.6)
[2021-11-27 01:43] LABS: ALBUMIN 3.3 g/dl (3.4-5.0); CALCIUM 9.3 mg/dL (8.5-10.1)
[2021-11-27 01:44] LABS: BLOOD UREA NITROGEN 12.9 mg/dL (7-18)
[2021-11-27 01:48] LABS: BILIRUBIN,TOTAL 0.9 mg/dL (0.2-1); TOT PROT 6.3 g/dl (6.4-8.2)
[2021-11-27 01:51] LABS: N-TERMINAL BNP 51.8 pg/ml (5-450)
== END 2021-11-27 03:00 | disposition home or self-care (01) ==
LOC: JER 00:32
PROC: 3E0F7GC Introduction of Other Therapeutic Substance into Respiratory Tract, Via Natural or Artificial Opening (ICD-10-PCS; principal; 2021-11-27)
DX: R05.9 Cough, unspecified (principal)
CPT/HCPCS: 0241U-QW; 36415; 71045-TC-FY; 80053; 83880; 84484; 85025; 93005; 93010; 99285-25

== ENCOUNTER 2022-01-05 11:48 | Emergency (ER) | payer BC ==
[2022-01-05 12:25] VITALS: BP 107/61; PULSE 66; TEMP 98.1; BMI 20.7
[2022-01-05] MEDS ORDERED: LIDOCAINE 5% TOPICAL PATCH TP ONE (12:47)
[2022-01-05] MEDS ORDERED: ACETAMINOPHEN 500 MG TABLET (FP) PO ONE (12:47)
[2022-01-05] MEDS ORDERED: LIDOCAINE 5% TOPICAL PATCH ONE (12:52)
[2022-01-05] MEDS ORDERED: ACETAMINOPHEN 325 MG TABLET (FP) ONE (12:52)
[2022-01-05] MEDS ORDERED: LIDOCAINE PATCH REMOVAL MC ONE (22:00)
== END 2022-01-05 13:33 | disposition home or self-care (01) ==
LOC: JER 11:48
DX: M54.50 Low back pain, unspecified (principal)
CPT/HCPCS: 99283-25

== ENCOUNTER 2022-01-27 17:51 | Emergency (ER) | payer BC ==
[2022-01-27 18:16] VITALS: BP 116/66; PULSE 70; RESP 18; TEMP 98.4; BMI 20.9
[2022-01-27 23:29] LABS: BASO % 0.6 % (0-2.0); EOS % 1.7 % (0-4.5); HEMOGLOBIN 12.7 GM/dL (10.7-15.3); MCH 27.7 pg (25.7-33.7); MCHC 31.9 g/dl (32.0-36.0); MEAN PLT VOLUME 10.3 fl (7.5-11.1); MONO % 6.2 % (3.8-10.2); NEUT % 69.5 % (42.8-82.8); PLATELET COUNT 233 10^3/uL (134-434); RDW 14.4 % (11.6-15.6)
[2022-01-27 23:42] LABS: INR 1.03 (0.83-1.09); PROTHROMBIN TIME (PATIENT) 11.9 SEC (9.7-13.0)
[2022-01-27 23:45] LABS: ACTIVATED PTT 24.2 SECONDS (25.2-36.5)
[2022-01-27 23:56] LABS: CHLORIDE 111 mmol/L (98-107); SODIUM 142 mmol/L (136-145)
[2022-01-27 23:58] LABS: CALCIUM 9.1 mg/dL (8.5-10.1)
[2022-01-27 23:59] LABS: ALBUMIN 3.3 g/dl (3.4-5.0); ANION GAP 3 MMOL/L (8-16); BLOOD UREA NITROGEN 8.1 mg/dL (7-18); CO2 28 mmol/L (21-32); GLUCOSE,RANDOM 104 mg/dL (74-106); MAGNESIUM 2.3 mg/dL (1.8-2.4)
[2022-01-28 00:02] LABS: CREATININE 0.8 mg/dL (0.55-1.3); SGOT/AST 46 U/L (15-37); SGPT/ALT 14 U/L (13-61)
[2022-01-28 00:03] LABS: BILIRUBIN,TOTAL 1.2 mg/dL (0.2-1)
[2022-01-28 00:04] LABS: TOT PROT 6.7 g/dl (6.4-8.2)
[2022-01-28 00:05] LABS: ALK PHOS 94 U/L (45-117)
== END 2022-01-28 00:37 | disposition home or self-care (01) ==
LOC: JER 17:51
DX: R60.9 Edema, unspecified (principal)
CPT/HCPCS: 36415; 71046-TC-FY; 80053; 82550; 82553; 83735; 83880; 84484; 85025; 85610; 85730; 93005; 93010; 93970-TC; 99284-25

== ENCOUNTER 2022-02-22 16:07 | Inpatient (IN) | payer BC ==
[2022-02-22 16:31] VITALS: BMI 20.5
[2022-02-22] MEDS ORDERED: VANCOMYCIN 1 GM in D5W (PRE-DOCKED) 1,000 MG/250 ML IVPB ONE (18:32)
[2022-02-22] MEDS ORDERED: CLINDAMYCIN 600MG PREMIX IVPB 600 MG/50 ML BAG IVPB ONE ×2 (18:47→19:40)
[2022-02-22] MEDS ORDERED: VANCOMYCIN/WATER FOR INJ (PEG) 1,000 MG/200 ML BAG IVPB ONE (19:40)
[2022-02-22 21:32] LABS: BASO % 0.8 % (0-2.0); EOS % 3.3 % (0-4.5); HEMATOCRIT 38.7 % (32.4-45.2); HEMOGLOBIN 12.6 GM/dL (10.7-15.3); LYMPH % 22.6 % (8-40); MCH 27.8 pg (25.7-33.7); MCHC 32.6 g/dl (32.0-36.0); MEAN CELL VOLUME 85.4 fl (80-96); MEAN PLT VOLUME 9.7 fl (7.5-11.1); NEUT % 66.3 % (42.8-82.8); PLATELET COUNT 219 10^3/uL (134-434); RBC 4.53 M/mm3 (3.60-5.2); RDW 14.5 % (11.6-15.6); WHITE BLOOD COUNT 4.8 K/mm3 (4.0-10.0)
[2022-02-22 21:40] LABS: INR 1.03 (0.83-1.09); PROTHROMBIN TIME (PATIENT) 11.9 SEC (9.7-13.0)
[2022-02-22 21:43] LABS: ACTIVATED PTT 29.2 SECONDS (25.2-36.5)
[2022-02-22 22:06] LABS: ALBUMIN 3.5 g/dl (3.4-5.0); CALCIUM 9.1 mg/dL (8.5-10.1)
[2022-02-22 22:07] LABS: BLOOD UREA NITROGEN 9.9 mg/dL (7-18)
[2022-02-22 22:11] LABS: BILIRUBIN,TOTAL 0.8 mg/dL (0.2-1); TOT PROT 6.4 g/dl (6.4-8.2)
[2022-02-22 22:15] LABS: ERYTHROCYTE SEDIMENTATION RATE 5 mm/hr (0-30)
[2022-02-23 06:35] LABS: BASO % 0.8 % (0-2.0); EOS % 5.6 % (0-4.5); HEMATOCRIT 36.4 % (32.4-45.2); HEMOGLOBIN 11.7 GM/dL (10.7-15.3); LYMPH % 33.3 % (8-40); MCH 27.3 pg (25.7-33.7); MCHC 32.1 g/dl (32.0-36.0); MEAN PLT VOLUME 10.8 fl (7.5-11.1); MONO % 9.9 % (3.8-10.2); NEUT % 50.4 % (42.8-82.8); PLATELET COUNT 208 10^3/uL (134-434); RBC 4.28 M/mm3 (3.60-5.2); RDW 14.4 % (11.6-15.6); WHITE BLOOD COUNT 4.4 K/mm3 (4.0-10.0)
[2022-02-23 06:52] LABS: CALCIUM 8.8 mg/dL (8.5-10.1)
[2022-02-23 06:53] LABS: ALBUMIN 3.1 g/dl (3.4-5.0); MAGNESIUM 2.1 mg/dL (1.8-2.4)
[2022-02-23 06:56] LABS: CREATININE 1.1 mg/dL (0.55-1.3)
[2022-02-23 06:57] LABS: BILIRUBIN,TOTAL 0.9 mg/dL (0.2-1); TOT PROT 5.7 g/dl (6.4-8.2)
[2022-02-23] MEDS ORDERED: GABAPENTIN 100 MG CAPSULE ONE (09:13)
[2022-02-23] MEDS ORDERED: ENOXAPARIN NA (PORCINE) 40 MG/0.4 ML DISP.SYRIN SQ ONE (09:14)
[2022-02-23] MEDS ORDERED: FUROSEMIDE 20 MG TABLET (FP) ONE (09:14)
[2022-02-23] MEDS: ENOXAPARIN NA (PORCINE) 40 MG/0.4 ML DISP.SYRIN SQ SCH (09:23)
[2022-02-23] MEDS: GABAPENTIN 100 MG CAPSULE PO SCH (09:24)
[2022-02-23] MEDS ORDERED: FUROSEMIDE 20 MG TABLET (FP) PO SCH (10:00)
[2022-02-23] MEDS: ATORVASTATIN CA 20 MG TABLET (FP) PO SCH (22:56)
[2022-02-23] MEDS: CEFTRIAXONE 1 GM in DEXTROSE 5%-WATER - 50 ML IVPB SCH (22:56)
[2022-02-24 08:58] LABS: BASO % 0.8 % (0-2.0); EOS % 8.8 % (0-4.5); HEMATOCRIT 39.3 % (32.4-45.2); HEMOGLOBIN 12.6 GM/dL (10.7-15.3); LYMPH % 33.5 % (8-40); MCH 27.8 pg (25.7-33.7); MEAN PLT VOLUME 10.1 fl (7.5-11.1); MONO % 12.4 % (3.8-10.2); NEUT % 44.5 % (42.8-82.8); PLATELET COUNT 222 10^3/uL (134-434); RBC 4.51 M/mm3 (3.60-5.2); RDW 14.7 % (11.6-15.6); WHITE BLOOD COUNT 3.6 K/mm3 (4.0-10.0)
[2022-02-24 09:24] LABS: CALCIUM 8.9 mg/dL (8.5-10.1)
[2022-02-24 09:25] LABS: ALBUMIN 3.2 g/dl (3.4-5.0)
[2022-02-24 09:28] LABS: CREATININE 0.9 mg/dL (0.55-1.3); PHOSPHOROUS 3.3 mg/dL (2.5-4.9)
[2022-02-24 09:29] LABS: BILIRUBIN,TOTAL 1.1 mg/dL (0.2-1)
[2022-02-24 09:33] LABS: BLOOD UREA NITROGEN 8.1 mg/dL (7-18)
[2022-02-24] MEDS: ENOXAPARIN NA (PORCINE) 40 MG/0.4 ML DISP.SYRIN SQ SCH (10:10)
[2022-02-24] MEDS: CEFTRIAXONE 1 GM in DEXTROSE 5%-WATER - 50 ML IVPB SCH (10:11)
[2022-02-24] MEDS: GABAPENTIN 100 MG CAPSULE PO SCH (10:11)
[2022-02-24] MEDS: FUROSEMIDE 40 MG/4 ML INJECTABLE VIAL IVPUSH SCH ×2 (10:35→10:37)
[2022-02-24] MEDS ORDERED: IBUPROFEN 200 MG TABLET PO ONE (14:56)
[2022-02-24] MEDS ORDERED: IBUPROFEN 400 MG TABLET (FP) PO ONE (15:15)
[2022-02-24] MEDS: ATORVASTATIN CA 20 MG TABLET (FP) PO SCH (20:59)
[2022-02-25] MEDS ORDERED: IBUPROFEN 400 MG TABLET (FP) PO ONE (04:23)
[2022-02-25] MEDS: ENOXAPARIN NA (PORCINE) 40 MG/0.4 ML DISP.SYRIN SQ SCH (09:28)
[2022-02-25] MEDS: GABAPENTIN 100 MG CAPSULE PO SCH (09:28)
[2022-02-25 09:32] LABS: HEMATOCRIT 39.9 % (32.4-45.2); MCH 27.6 pg (25.7-33.7); MCHC 32.4 g/dl (32.0-36.0); MEAN PLT VOLUME 10.2 fl (7.5-11.1); PLATELET COUNT 226 10^3/uL (134-434); RDW 14.3 % (11.6-15.6); WHITE BLOOD COUNT 3.6 K/mm3 (4.0-10.0)
[2022-02-25 09:43] LABS: CALCIUM 9.3 mg/dL (8.5-10.1); MAGNESIUM 2.2 mg/dL (1.8-2.4)
[2022-02-25 09:48] LABS: BLOOD UREA NITROGEN 15.6 mg/dL (7-18)
[2022-02-25] MEDS ORDERED: FUROSEMIDE 20 MG TABLET (FP) PO SCH (14:00)
[2022-02-25] MEDS: FUROSEMIDE 40 MG/4 ML INJECTABLE VIAL IVPUSH SCH (14:18)
[2022-02-25] MEDS: CEFTRIAXONE 1 GM in DEXTROSE 5%-WATER - 50 ML IVPB SCH (14:18)
[2022-02-25] MEDS: ATORVASTATIN CA 20 MG TABLET (FP) PO SCH (21:22)
[2022-02-26 08:25] VITALS: BP 122/67; PULSE 78; RESP 20; TEMP 97.8
[2022-02-26] MEDS ORDERED: FUROSEMIDE 40 MG TABLET (FP) PO SCH (10:00)
[2022-02-26] MEDS: ENOXAPARIN NA (PORCINE) 40 MG/0.4 ML DISP.SYRIN SQ SCH (10:27)
[2022-02-26] MEDS: GABAPENTIN 100 MG CAPSULE PO SCH (10:27)
== END 2022-02-26 14:17 | disposition home or self-care (01) | DRG 948 ==
LOC: JER 16:07 → JERBED 18:47 → J8W 02-23 20:36
PROVIDERS: ADMIT Hospitalist; ATTEND Internal Medicine
DX: R60.0 Localized edema (principal); I50.30 Unspecified diastolic (congestive) heart failure; J44.9 Chronic obstructive pulmonary disease, unspecified; E78.5 Hyperlipidemia, unspecified; I34.1 Nonrheumatic mitral (valve) prolapse; M06.9 Rheumatoid arthritis, unspecified; E11.9 Type 2 diabetes mellitus without complications; T46.1X5A Adverse effect of calcium-channel blockers, initial encounter; I11.0 Hypertensive heart disease with heart failure; M71.21 Synovial cyst of popliteal space [Baker], right knee; M71.22 Synovial cyst of popliteal space [Baker], left knee
CPT/HCPCS: 36415; 71045-TC-FY; 73590-TC-LT-FY; 73610-TC-LT-FY; 73630-TC-LT; 80048; 80053; 83036; 83735; 83880; 84100; 85025; 85027; 85610; 85651; 85730; 86140; 87040; 93005; 93010; 93970-TC; 97116-GP; 99285-25; C9803-CS; U0003; U0005

== ENCOUNTER 2022-08-18 23:25 | Inpatient (IN) | payer BC, OTHER ==
[2022-08-18] MEDS ORDERED: ACETAMINOPHEN 500 MG TABLET (FP) PO ONE (23:53)
[2022-08-18] MEDS: LIDOCAINE 5% TOPICAL PATCH TP ONE (23:55)
[2022-08-19] MEDS ORDERED: ACETAMINOPHEN 325 MG TABLET (FP) ONE (00:01)
[2022-08-19] MEDS ORDERED: LIDOCAINE 5% TOPICAL PATCH ONE (00:01)
[2022-08-19] MEDS ORDERED: ACETAMINOPHEN 1000 MG/100 ML BAG IVPB ONE (00:04)
[2022-08-19] MEDS ORDERED: ACETAMINOPHEN INJECTION 100 ML IVPB ONE (00:04)
[2022-08-19] MEDS ORDERED: morphine CARPU-JECT 2 MG/1 ML DISP.SYRIN IVPUSH ONE (00:05)
[2022-08-19] MEDS: LIDOCAINE 5% TOPICAL PATCH TP ONE (00:35)
[2022-08-19 01:24] LABS: BASO % 0.4 % (0-2.0); EOS % 3.6 % (0-4.5); HEMATOCRIT 40.7 % (32.4-45.2); MCH 27.7 pg (25.7-33.7); MCHC 31.8 g/dl (32.0-36.0); MEAN CELL VOLUME 87.1 fl (80-96); MEAN PLT VOLUME 11.2 fl (7.5-11.1); MONO % 6.5 % (3.8-10.2); NEUT % 67.5 % (42.8-82.8); PLATELET COUNT 160 10^3/uL (134-434); RBC 4.68 M/mm3 (3.60-5.2); RDW 15.1 % (11.6-15.6); WHITE BLOOD COUNT 6.8 K/mm3 (4.0-10.0)
[2022-08-19 01:33] LABS: ACTIVATED PTT 25.6 SECONDS (25.2-36.5); INR 1.05 (0.83-1.09); PROTHROMBIN TIME (PATIENT) 12.2 SEC (9.7-13.0)
[2022-08-19 02:42] LABS: CHLORIDE 70 mmol/L (98-107)
[2022-08-19 02:45] LABS: ALBUMIN 2.1 g/dl (3.4-5.0); BLOOD UREA NITROGEN 14.4 mg/dL (7-18); CO2 21 mmol/L (21-32); GLUCOSE,RANDOM 63 mg/dL (74-106)
[2022-08-19 02:48] LABS: CREATININE 0.4 mg/dL (0.55-1.3); SGOT/AST 14 U/L (15-37); SGPT/ALT 10 U/L (13-61)
[2022-08-19 02:51] LABS: ALK PHOS 53 U/L (45-117)
[2022-08-19] MEDS ORDERED: POTASSIUM CHLORIDE TABS 20 MEQ TABLET.ER (FP) PO ONE ×2 (02:53→02:54)
[2022-08-19 03:14] LABS: ANION GAP 11 MMOL/L (8-16); CALCIUM 5.9 mg/dL (8.5-10.1); SODIUM 102 mmol/L (136-145)
[2022-08-19 03:30] LABS: EPI CELLS 5 /uL (0-25.1); HYALINE CASTS 0 /uL (0-3.1); URINE APPEARANCE CLEAR; URINE BACTERIA 7 /uL (0-1359); URINE BILIRUBIN NEGATIVE (NEGATIVE); URINE COLOR YELLOW; URINE GLUCOSE (UA) NEGATIVE (NEGATIVE); URINE KETONE NEGATIVE (NEGATIVE); URINE LEUK ESTERASE NEGATIVE (NEGATIVE); URINE NITRITE NEGATIVE (NEGATIVE); URINE PROTEIN NEGATIVE (NEGATIVE); URINE RBC 36 /uL (0-23.9); URINE WBC 10 /uL (0-25.8)
[2022-08-19 03:42] LABS: BLOOD UREA NITROGEN 18.8 mg/dL (7-18); MAGNESIUM 1.7 mg/dL (1.8-2.4)
[2022-08-19 03:45] LABS: CREATININE 0.8 mg/dL (0.55-1.3)
[2022-08-19 04:04] LABS: CALCIUM 8.9 mg/dL (8.5-10.1)
[2022-08-19] MEDS ORDERED: MAGNESIUM SULF 50% (8.12 MEQ/2 ML-1 GM VIAL) IVPB ONE (04:24)
[2022-08-19] MEDS: ACETAMINOPHEN 325 MG TABLET (FP) PO PRN (06:14)
[2022-08-19] MEDS ORDERED: traMADol HCL 50 MG TABLET PO PRN (07:58)
[2022-08-19] MEDS ORDERED: traMADol HCL 50 MG TABLET PO SCH (08:00)
[2022-08-19 08:58] LABS: BASO % 0.5 % (0-2.0); EOS % 6.3 % (0-4.5); HEMOGLOBIN 11.9 GM/dL (10.7-15.3); LYMPH % 14.3 % (8-40); MCHC 32.3 g/dl (32.0-36.0); MEAN CELL VOLUME 86.7 fl (80-96); MEAN PLT VOLUME 9.4 fl (7.5-11.1); MONO % 8.8 % (3.8-10.2); NEUT % 70.1 % (42.8-82.8); PLATELET COUNT 136 10^3/uL (134-434); RBC 4.27 M/mm3 (3.60-5.2); RDW 15.4 % (11.6-15.6); WHITE BLOOD COUNT 5.8 K/mm3 (4.0-10.0)
[2022-08-19 09:32] LABS: BLOOD UREA NITROGEN 17.4 mg/dL (7-18); CALCIUM 8.7 mg/dL (8.5-10.1); MAGNESIUM 1.9 mg/dL (1.8-2.4)
[2022-08-19 09:35] LABS: CREATININE 0.8 mg/dL (0.55-1.3); PHOSPHOROUS 2.7 mg/dL (2.5-4.9)
[2022-08-19 09:37] LABS: BILIRUBIN,TOTAL 1.9 mg/dL (0.2-1); TOT PROT 5.5 g/dl (6.4-8.2)
[2022-08-19] MEDS: AMINO ACIDS/PROTEIN HYDROLYS 30 ML LIQUID.PKT PO SCH ×2 (09:51→17:44)
[2022-08-19] MEDS: LIDOCAINE 5% TOPICAL PATCH TP SCH (09:51)
[2022-08-19] MEDS: ENOXAPARIN NA (PORCINE) 40 MG/0.4 ML DISP.SYRIN SQ SCH (09:51)
[2022-08-19] MEDS: predniSONE 5 MG TABLET (UD) PO SCH (09:51)
[2022-08-19] MEDS: FOLIC ACID 1 MG TABLET (FP) PO SCH (09:51)
[2022-08-19] MEDS: CHOLECALCIFEROL (VIT D3) 1,000 UNIT (25 MCG) TABLET PO SCH (09:51)
[2022-08-19 10:18] LABS: ALBUMIN 3.1 g/dl (3.4-5.0)
[2022-08-19] MEDS: METHYL SALICYLATE/MENTHOL OINT 30 GM TUBE TP SCH ×2 (11:22→22:17)
[2022-08-19] MEDS ORDERED: LIDOCAINE PATCH REMOVAL MC ONE (12:00)
[2022-08-19] MEDS ORDERED: METHOTREXATE 2.5 MG TABLET PO SCH (18:00)
[2022-08-19] MEDS: ATORVASTATIN CA 20 MG TABLET (FP) PO SCH (22:17)
[2022-08-19] MEDS: LIDOCAINE PATCH REMOVAL MC SCH (22:33)
[2022-08-20] MEDS: LIDOCAINE 5% TOPICAL PATCH TP SCH (09:58)
[2022-08-20] MEDS ORDERED: GABAPENTIN 100 MG CAPSULE PO ONE (09:58)
[2022-08-20] MEDS: AMINO ACIDS/PROTEIN HYDROLYS 30 ML LIQUID.PKT PO SCH ×3 (09:58→18:06)
[2022-08-20] MEDS ORDERED: ACETAMINOPHEN 1000 MG/100 ML BAG IVPB ONE (09:58)
[2022-08-20] MEDS: METHYL SALICYLATE/MENTHOL OINT 30 GM TUBE TP SCH ×2 (10:00→23:22)
[2022-08-20] MEDS: predniSONE 5 MG TABLET (UD) PO SCH (10:00)
[2022-08-20] MEDS: FOLIC ACID 1 MG TABLET (FP) PO SCH (10:00)
[2022-08-20] MEDS: CHOLECALCIFEROL (VIT D3) 1,000 UNIT (25 MCG) TABLET PO SCH (10:00)
[2022-08-20] MEDS: ENOXAPARIN NA (PORCINE) 40 MG/0.4 ML DISP.SYRIN SQ SCH (10:01)
[2022-08-20] MEDS: GABAPENTIN 100 MG CAPSULE PO SCH ×2 (17:48→23:18)
[2022-08-20] MEDS: ATORVASTATIN CA 20 MG TABLET (FP) PO SCH (23:18)
[2022-08-20] MEDS: LIDOCAINE PATCH REMOVAL MC SCH (23:22)
[2022-08-21] MEDS: GABAPENTIN 100 MG CAPSULE PO SCH ×3 (06:43→22:53)
[2022-08-21 09:18] LABS: EOS % 8.2 % (0-4.5); HEMATOCRIT 39.7 % (32.4-45.2); HEMOGLOBIN 12.6 GM/dL (10.7-15.3); LYMPH % 27.8 % (8-40); MCH 27.7 pg (25.7-33.7); MCHC 31.8 g/dl (32.0-36.0); MEAN CELL VOLUME 86.8 fl (80-96); MEAN PLT VOLUME 10.4 fl (7.5-11.1); MONO % 9.3 % (3.8-10.2); NEUT % 53.7 % (42.8-82.8); PLATELET COUNT 148 10^3/uL (134-434); RBC 4.57 M/mm3 (3.60-5.2); RDW 15.4 % (11.6-15.6); WHITE BLOOD COUNT 4.1 K/mm3 (4.0-10.0)
[2022-08-21 09:37] LABS: ALBUMIN 3.1 g/dl (3.4-5.0); BLOOD UREA NITROGEN 14.4 mg/dL (7-18); CALCIUM 8.9 mg/dL (8.5-10.1)
[2022-08-21 09:38] LABS: TOT PROT 5.9 g/dl (6.4-8.2)
[2022-08-21 09:39] LABS: BILIRUBIN,TOTAL 1.7 mg/dL (0.2-1); CREATININE 0.7 mg/dL (0.55-1.3)
[2022-08-21] MEDS: METHYL SALICYLATE/MENTHOL OINT 30 GM TUBE TP SCH ×2 (10:02→22:52)
[2022-08-21] MEDS: AMINO ACIDS/PROTEIN HYDROLYS 30 ML LIQUID.PKT PO SCH ×2 (10:02→17:32)
[2022-08-21] MEDS: ENOXAPARIN NA (PORCINE) 40 MG/0.4 ML DISP.SYRIN SQ SCH (10:03)
[2022-08-21] MEDS: LIDOCAINE 5% TOPICAL PATCH TP SCH (10:03)
[2022-08-21] MEDS: CHOLECALCIFEROL (VIT D3) 1,000 UNIT (25 MCG) TABLET PO SCH (10:03)
[2022-08-21] MEDS: predniSONE 5 MG TABLET (UD) PO SCH (10:03)
[2022-08-21] MEDS: FOLIC ACID 1 MG TABLET (FP) PO SCH (10:03)
[2022-08-21 11:58] VITALS: BMI 18.6
[2022-08-21] MEDS: LIDOCAINE PATCH REMOVAL MC SCH (22:52)
[2022-08-21] MEDS: ATORVASTATIN CA 20 MG TABLET (FP) PO SCH (22:53)
[2022-08-22] MEDS: GABAPENTIN 100 MG CAPSULE PO SCH (06:07)
[2022-08-22 08:48] VITALS: BP 139/74; PULSE 76; RESP 16; TEMP 98.9
[2022-08-22 09:43] LABS: EOS % 6.3 % (0-4.5); HEMATOCRIT 39.2 % (32.4-45.2); HEMOGLOBIN 12.7 GM/dL (10.7-15.3); LYMPH % 26.7 % (8-40); MCH 28.1 pg (25.7-33.7); MCHC 32.3 g/dl (32.0-36.0); MEAN CELL VOLUME 86.9 fl (80-96); MEAN PLT VOLUME 10.5 fl (7.5-11.1); MONO % 8.7 % (3.8-10.2); NEUT % 57.3 % (42.8-82.8); PLATELET COUNT 149 10^3/uL (134-434); RBC 4.51 M/mm3 (3.60-5.2); RDW 15.6 % (11.6-15.6); WHITE BLOOD COUNT 5.5 K/mm3 (4.0-10.0)
[2022-08-22] MEDS ORDERED: MULTIVITAMINS THER W-MINERALS COMBO TABLET (FP) PO SCH (10:00)
[2022-08-22] MEDS: ACETAMINOPHEN 325 MG TABLET (FP) PO PRN (10:09)
[2022-08-22] MEDS: ENOXAPARIN NA (PORCINE) 40 MG/0.4 ML DISP.SYRIN SQ SCH (10:12)
[2022-08-22 10:41] LABS: BLOOD UREA NITROGEN 14.3 mg/dL (7-18); CALCIUM 9.1 mg/dL (8.5-10.1)
[2022-08-22 10:42] LABS: ALBUMIN 3.2 g/dl (3.4-5.0)
[2022-08-22 10:44] LABS: CREATININE 0.7 mg/dL (0.55-1.3)
[2022-08-22 10:47] LABS: BILIRUBIN,TOTAL 1.4 mg/dL (0.2-1); TOT PROT 6.2 g/dl (6.4-8.2)
[2022-08-22] MEDS: CHOLECALCIFEROL (VIT D3) 1,000 UNIT (25 MCG) TABLET PO SCH (10:47)
[2022-08-22] MEDS: LIDOCAINE 5% TOPICAL PATCH TP SCH (10:47)
[2022-08-22] MEDS: predniSONE 5 MG TABLET (UD) PO SCH (10:47)
[2022-08-22] MEDS: AMINO ACIDS/PROTEIN HYDROLYS 30 ML LIQUID.PKT PO SCH (10:47)
[2022-08-22] MEDS: FOLIC ACID 1 MG TABLET (FP) PO SCH (10:47)
[2022-08-22] MEDS: METHYL SALICYLATE/MENTHOL OINT 30 GM TUBE TP SCH (10:53)
[2022-08-22 11:07] LABS: MAGNESIUM 2.1 mg/dL (1.8-2.4)
== END 2022-08-22 13:33 | DRG 551 ==
LOC: JER 23:25 → JERBED 08-19 02:58 → OBSVTOIN 08-19 04:26 → J8W 08-19 06:07
PROVIDERS: ADMIT Internal Medicine; ATTEND Nurse Practitioner Family
DX: M54.50 Low back pain, unspecified (principal); E43 Unspecified severe protein-calorie malnutrition; G93.41 Metabolic encephalopathy; Z68.1 Body mass index [BMI] 19.9 or less, adult; J44.9 Chronic obstructive pulmonary disease, unspecified; I10 Essential (primary) hypertension; E78.5 Hyperlipidemia, unspecified; E87.6 Hypokalemia; Z99.81 Dependence on supplemental oxygen; R31.9 Hematuria, unspecified; I44.7 Left bundle-branch block, unspecified; M06.9 Rheumatoid arthritis, unspecified; G62.9 Polyneuropathy, unspecified; E83.42 Hypomagnesemia
CPT/HCPCS: 36415; 70450-TC; 72125-TC; 72131-TC; 72170-TC-FY; 80048; 80053; 81003; 82746; 83735; 84100; 84439; 84443; 85025; 85610; 85730; 87086; 87186; 93005; 93010; 97116-GP; 97162-GP; 99285-25; C9803-CS; G0378; J8610; U0003; U0005

== ENCOUNTER 2023-07-03 10:58 | Observation (INO) | payer BC, OTHER ==
[2023-07-03 13:16] LABS: BASO % 0.8 % (0-2.0); EOS % 6.3 % (0-4.5); HEMATOCRIT 35.1 % (32.4-45.2); LYMPH % 28.7 % (8-40); MCH 26.9 pg (25.7-33.7); MCHC 31.4 g/dl (32.0-36.0); MEAN CELL VOLUME 85.6 fl (80-96); MEAN PLT VOLUME 9.2 fl (7.5-11.1); MONO % 14.2 % (3.8-10.2); PLATELET COUNT 239 10^3/uL (134-434); RDW 14.9 % (11.6-15.6); WHITE BLOOD COUNT 5.1 K/mm3 (4.0-10.0)
[2023-07-03 13:32] LABS: INR 1.05 (0.83-1.09); PROTHROMBIN TIME (PATIENT) 12.2 SEC (9.7-13.0)
[2023-07-03 13:34] LABS: POTASSIUM 4.4 mmol/L (3.5-5.1)
[2023-07-03 13:37] LABS: CALCIUM 9.2 mg/dL (8.5-10.1)
[2023-07-03 13:38] LABS: BLOOD UREA NITROGEN 10.3 mg/dL (7-18)
[2023-07-03 13:40] LABS: CREATININE 0.7 mg/dL (0.55-1.3)
[2023-07-03 13:42] LABS: BILIRUBIN,TOTAL 1.4 mg/dL (0.2-1); TOT PROT 6.4 g/dl (6.4-8.2)
[2023-07-03 13:45] LABS: N-TERMINAL BNP 766.1 pg/ml (5-450)
[2023-07-03] MEDS ORDERED: KETOROLAC TROMETHAMINE 15 MG/ML VIAL IVPUSH PRN (23:30)
[2023-07-03] MEDS ORDERED: ACETAMINOPHEN 325 MG TABLET (FP) PO PRN (23:30)
[2023-07-03] MEDS ORDERED: DOCUSATE SODIUM 100 MG CAPSULE (FP) PO PRN (23:30)
[2023-07-04 04:45] VITALS: BMI 18.2
[2023-07-04 07:07] VITALS: TEMP 98.8
[2023-07-04 07:19] LABS: BASO % 0.7 % (0-2.0); EOS % 6.1 % (0-4.5); HEMATOCRIT 36.4 % (32.4-45.2); HEMOGLOBIN 11.4 GM/dL (10.7-15.3); LYMPH % 23.7 % (8-40); MCH 26.9 pg (25.7-33.7); MCHC 31.4 g/dl (32.0-36.0); MEAN CELL VOLUME 85.8 fl (80-96); MEAN PLT VOLUME 9.3 fl (7.5-11.1); MONO % 10.8 % (3.8-10.2); NEUT % 58.7 % (42.8-82.8); PLATELET COUNT 254 10^3/uL (134-434); RBC 4.25 M/mm3 (3.60-5.2); RDW 14.7 % (11.6-15.6); WHITE BLOOD COUNT 6.3 K/mm3 (4.0-10.0)
[2023-07-04 07:37] LABS: POTASSIUM 4.2 mmol/L (3.5-5.1)
[2023-07-04 07:41] LABS: BLOOD UREA NITROGEN 9.2 mg/dL (7-18)
[2023-07-04 07:43] LABS: CALCIUM 9.2 mg/dL (8.5-10.1); CREATININE 0.7 mg/dL (0.55-1.3); MAGNESIUM 1.9 mg/dL (1.8-2.4)
[2023-07-04 07:45] LABS: PHOSPHOROUS 3.6 mg/dL (2.5-4.9)
[2023-07-04] MEDS ORDERED: CHOLECALCIFEROL (VIT D3) 1,000 UNIT (25 MCG) TABLET PO SCH (10:00)
[2023-07-04] MEDS ORDERED: predniSONE 5 MG TABLET (UD) PO SCH (10:00)
[2023-07-04] MEDS ORDERED: FOLIC ACID 1 MG TABLET (FP) PO SCH (10:00)
[2023-07-04] MEDS ORDERED: METHYL SALICYLATE/MENTHOL OINT 30 GM TUBE TP SCH (10:00)
[2023-07-04 13:15] VITALS: BP 122/65; PULSE 78; RESP 24
[2023-07-04] MEDS ORDERED: ATORVASTATIN CA 20 MG TABLET (FP) PO SCH (22:00)
== END 2023-07-04 13:23 | disposition home or self-care (01) ==
LOC: JER 10:58 → JERBED 22:03 → J4W 07-04 03:26
PROVIDERS: ADMIT Internal Medicine; ATTEND Internal Medicine
DX: R07.89 Other chest pain (principal); F41.9 Anxiety disorder, unspecified; R73.03 Prediabetes; J44.9 Chronic obstructive pulmonary disease, unspecified; M06.9 Rheumatoid arthritis, unspecified; E78.5 Hyperlipidemia, unspecified; I34.1 Nonrheumatic mitral (valve) prolapse
CPT/HCPCS: 0241U-QW; 36415; 71045-TC-FY; 71275-TC; 80048; 80053; 83690; 83735; 83880; 84100; 84484; 85025; 85379; 85610; 85730; 93005; 93010; 97116-GP; 97161-GP; 99285-25; G0378; Q9967

== ENCOUNTER 2024-01-04 22:13 | Observation (INO) | payer OTHER ==
[2024-01-04 23:19] LABS: BASO % 0.7 % (0-2.0); EOS % 3.7 % (0-4.5); HEMATOCRIT 40.9 % (32.4-45.2); HEMOGLOBIN 13.1 GM/dL (10.7-15.3); LYMPH % 29.2 % (8-40); MCH 28.3 pg (25.7-33.7); MEAN CELL VOLUME 88.4 fl (80-96); MEAN PLT VOLUME 10.1 fl (7.5-11.1); MONO % 7.7 % (3.8-10.2); NEUT % 58.7 % (42.8-82.8); PLATELET COUNT 245 10^3/uL (134-434); RBC 4.63 M/mm3 (3.60-5.2); RDW 14.4 % (11.6-15.6); WHITE BLOOD COUNT 4.2 K/mm3 (4.0-10.0)
[2024-01-04 23:29] LABS: INR 0.96 (0.83-1.09)
[2024-01-04 23:31] LABS: ACTIVATED PTT 27.2 SECONDS (25.2-36.5)
[2024-01-04 23:46] LABS: POTASSIUM 5.6 mmol/L (3.5-5.1)
[2024-01-04 23:48] LABS: CALCIUM 9.6 mg/dL (8.5-10.1)
[2024-01-04 23:49] LABS: ALBUMIN 3.5 g/dl (3.4-5.0); BLOOD UREA NITROGEN 11.5 mg/dL (7-18)
[2024-01-04 23:51] LABS: CREATININE 0.9 mg/dL (0.55-1.3)
[2024-01-04 23:53] LABS: BILIRUBIN,TOTAL 1.1 mg/dL (0.2-1); TOT PROT 7.1 g/dl (6.4-8.2)
[2024-01-05 02:36] LABS: POTASSIUM 4.1 mmol/L (3.5-5.1)
[2024-01-05 02:37] LABS: CALCIUM 9.6 mg/dL (8.5-10.1)
[2024-01-05 02:38] LABS: BLOOD UREA NITROGEN 10.7 mg/dL (7-18)
[2024-01-05 02:41] LABS: CREATININE 0.9 mg/dL (0.55-1.3)
[2024-01-05] MEDS ORDERED: FUROSEMIDE 40 MG/4 ML INJECTABLE VIAL ONE (05:05)
[2024-01-05] MEDS: FUROSEMIDE 40 MG/4 ML INJECTABLE VIAL IVPUSH ONE (05:07)
[2024-01-05] MEDS: INSULIN ASPART SLIDING SCALE (NOVOLOG) 1 VIAL SQ SCH (06:15)
[2024-01-05 08:21] LABS: POTASSIUM 4.5 mmol/L (3.5-5.1)
[2024-01-05 08:33] LABS: ALBUMIN 3.8 g/dl (3.4-5.0); CALCIUM 9.9 mg/dL (8.5-10.1); MAGNESIUM 2.2 mg/dL (1.8-2.4)
[2024-01-05 08:34] LABS: BILIRUBIN,TOTAL 1.5 mg/dL (0.2-1); MCH 28.6 pg (25.7-33.7); MCHC 32.7 g/dl (32.0-36.0); MEAN CELL VOLUME 87.7 fl (80-96); MEAN PLT VOLUME 10.7 fl (7.5-11.1); PLATELET COUNT 219 10^3/uL (134-434); RDW 14.6 % (11.6-15.6); WHITE BLOOD COUNT 4.6 K/mm3 (4.0-10.0)
[2024-01-05 08:35] LABS: TOT PROT 7.4 g/dl (6.4-8.2)
[2024-01-05 08:36] LABS: CREATININE 0.8 mg/dL (0.55-1.3); PHOSPHOROUS 3.8 mg/dL (2.5-4.9)
[2024-01-05] MEDS: CHOLECALCIFEROL (VIT D3) 1,000 UNIT (25 MCG) TABLET PO SCH (09:47)
[2024-01-05] MEDS: predniSONE 5 MG TABLET (UD) PO SCH (09:47)
[2024-01-05] MEDS: FOLIC ACID 1 MG TABLET (FP) PO SCH (09:47)
[2024-01-05] MEDS: ENOXAPARIN NA (PORCINE) 40 MG/0.4 ML DISP.SYRIN SQ SCH (09:48)
[2024-01-05] MEDS ORDERED: ALBUTEROL SO4 2.5/IPRATROPIUM 0.5 INH SOL 3 ML VIAL.NEB. NEB PRN (14:51)
[2024-01-05] MEDS: PANTOPRAZOLE 20 MG TABLET PO SCH (14:54)
[2024-01-05] MEDS ORDERED: traMADol HCL 50 MG TABLET PO PRN (16:39)
[2024-01-05] MEDS: METHOTREXATE 2.5 MG TABLET PO SCH (17:35)
[2024-01-05] MEDS: ACETAMINOPHEN 325 MG TABLET (FP) PO PRN (17:37)
[2024-01-05] MEDS: ATORVASTATIN CA 20 MG TABLET (FP) PO SCH (21:43)
[2024-01-06 08:19] LABS: POTASSIUM 4.8 mmol/L (3.5-5.1)
[2024-01-06 08:20] LABS: CALCIUM 9.4 mg/dL (8.5-10.1)
[2024-01-06 08:21] LABS: BLOOD UREA NITROGEN 12.8 mg/dL (7-18); MAGNESIUM 2.1 mg/dL (1.8-2.4)
[2024-01-06 08:24] LABS: CREATININE 0.9 mg/dL (0.55-1.3)
[2024-01-06 11:02] LABS: BASO % 0.4 % (0-2.0); EOS % 5.8 % (0-4.5); HEMATOCRIT 42.1 % (32.4-45.2); HEMOGLOBIN 13.6 GM/dL (10.7-15.3); LYMPH % 29.5 % (8-40); MCH 28.3 pg (25.7-33.7); MCHC 32.3 g/dl (32.0-36.0); MEAN CELL VOLUME 87.6 fl (80-96); MEAN PLT VOLUME 10.2 fl (7.5-11.1); MONO % 11.9 % (3.8-10.2); NEUT % 52.4 % (42.8-82.8); PLATELET COUNT 208 10^3/uL (134-434); RBC 4.81 M/mm3 (3.60-5.2); RDW 14.7 % (11.6-15.6); WHITE BLOOD COUNT 4.3 K/mm3 (4.0-10.0)
[2024-01-06 16:06] VITALS: BMI 17.8
[2024-01-06] MEDS: FUROSEMIDE 20 MG TABLET (FP) PO SCH (18:37)
[2024-01-06] MEDS: SACUBITRIL/VALSARTAN 24 MG-26 MG TABLET PO SCH (21:25)
[2024-01-07] MEDS: metoPROLOL SUCCINATE 25 MG TAB.SR.24H (FP) PO SCH (10:11)
[2024-01-07] MEDS: EMPAGLIFLOZIN (JARDIANCE) 10 MG TABLET PO SCH (17:32)
[2024-01-07] MEDS: ATORVASTATIN CA 40 MG TABLET (FP) PO SCH (21:04)
[2024-01-08 14:35] VITALS: BP 101/62; PULSE 79; TEMP 97.9
[2024-01-08 16:51] VITALS: RESP 16
== END 2024-01-08 16:45 | disposition short-term general hospital (02) ==
LOC: JER 22:13 → JERBED 01-05 03:25 → J4S 01-05 05:35
PROVIDERS: ADMIT Internal Medicine; ATTEND Internal Medicine
PROC: 3E023GC Introduction of Other Therapeutic Substance into Muscle, Percutaneous Approach (ICD-10-PCS; principal; 2024-01-05)
PROC: 3E033GC Introduction of Other Therapeutic Substance into Peripheral Vein, Percutaneous Approach (ICD-10-PCS; 2024-01-05)
DX: I50.9 Heart failure, unspecified (principal); M06.9 Rheumatoid arthritis, unspecified; I10 Essential (primary) hypertension; I50.30 Unspecified diastolic (congestive) heart failure; E78.5 Hyperlipidemia, unspecified; R07.9 Chest pain, unspecified; R06.09 Other forms of dyspnea; I34.1 Nonrheumatic mitral (valve) prolapse
CPT/HCPCS: 0241U-QW; 36415; 71045-TC-FY; 71275-TC; 73030-TC-RT-FY; 80048; 80053; 80061; 82550; 82962; 83036; 83735; 83880; 84100; 84443; 84484; 85025; 85027; 85379; 85610; 85730; 93005; 93010; 93306-TC; 96374; 96375; 97116-GP; 99285-25; G0378; J8610; Q9967

== ENCOUNTER 2024-12-20 17:31 | Emergency (ER) | payer OTHER ==
[2024-12-20 17:38] VITALS: TEMP 98.1; BMI 16.4
[2024-12-20] MEDS ORDERED: ASPIRIN 81 MG CHEWABLE TABLETS ONE (18:17)
[2024-12-20] MEDS ORDERED: ACETAMINOPHEN INJECTION 100 ML ONE (18:17)
[2024-12-20] MEDS ORDERED: MAG HYDROX/AL HYDROX/SIMETH 30 ML UNIT-DOSE CUP ONE (18:17)
[2024-12-20] MEDS ORDERED: FAMOTIDINE 20 MG/50 ML IVPB 20 MG/50 ML MG IVPB ONE (18:17)
[2024-12-20] MEDS: ONDANSETRON 4 MG TABLET PO ONE (18:34)
[2024-12-20] MEDS: PANTOPRAZOLE SODIUM 40 MG VIAL IVPUSH ONE (18:34)
[2024-12-20] MEDS: ACETAMINOPHEN 1000 MG/100 ML BAG IVPB ONE (18:35)
[2024-12-20] MEDS: FAMOTIDINE 20 MG/50 ML IVPB 20 MG/50 ML MG IVPB ONE (18:35)
[2024-12-20] MEDS: ASPIRIN 81 MG CHEWABLE TABLETS PO ONE (18:35)
[2024-12-20] MEDS: MAG HYDROX/AL HYDROX/SIMETH -MYLANTA- ORAL SUSPENSION PO ONE (18:36)
[2024-12-20 18:37] LABS: ABSOLUTE IMMATURE GRANULOCYTES 0.01 x10^3/uL (0.0-0.031); BASOPHILS # 0.02 x10^3/uL (0.01-0.08); EOSINOPHIL % 4.2 % (0.7-5.8); EOSINOPHILS # 0.26 x10^3/uL (0.04-0.36); HEMATOCRIT 37.1 % (34.1-44.9); HEMOGLOBIN 11.1 g/dL (11.2-15.7); MCHC 29.9 g/dl (32.2-35.5); MEAN CELL VOLUME 89.6 fl (79.4-94.8); MEAN PLT VOLUME 11.2 fl (9.4-12.3); MONOCYTE # 0.91 x10^3/uL (0.24-0.86); MONOCYTE % 14.8 % (4.7-12.5); PLATELET COUNT 268 x10^3/uL (182-369); RDW 14.2 % (12.5-17.0)
[2024-12-20 18:57] LABS: POTASSIUM 3.6 mmol/L (3.5-5.1)
[2024-12-20 18:59] LABS: CALCIUM 9.1 mg/dL (8.5-10.1)
[2024-12-20 19:03] LABS: CREATININE 0.8 mg/dL (0.55-1.3)
[2024-12-20 19:04] LABS: BILIRUBIN,TOTAL 1.2 mg/dL (0.2-1); TOT PROT 6.2 g/dl (6.4-8.2)
[2024-12-20 19:52] VITALS: BP 121/70
[2024-12-20 21:05] LABS: INR 1.11 (0.83-1.09); PROTHROMBIN TIME (PATIENT) 12.2 SEC (9.7-13.0)
[2024-12-20 21:08] LABS: ACTIVATED PTT 29.3 SECONDS (25.2-36.5)
[2024-12-20 21:54] VITALS: PULSE 67; RESP 19
== END 2024-12-20 22:09 | disposition home or self-care (01) ==
LOC: JER 17:31
PROC: 3E033GC Introduction of Other Therapeutic Substance into Peripheral Vein, Percutaneous Approach (ICD-10-PCS; principal; 2024-12-20)
PROC: 3E033GC Introduction of Other Therapeutic Substance into Peripheral Vein, Percutaneous Approach (ICD-10-PCS; 2024-12-20)
PROC: 3E033NZ Introduction of Analgesics, Hypnotics, Sedatives into Peripheral Vein, Percutaneous Approach (ICD-10-PCS; 2024-12-20)
DX: R07.2 Precordial pain (principal)
CPT/HCPCS: 0241U-QW; 36415; 71045-TC-FY; 80053; 83735; 84484; 85025; 85610; 85730; 93005; 93010; 96365; 96375; 99285-25